=== PATIENT | female | born 1985 | race Caucasian/White ===

== ENCOUNTER 2018-06-11 15:24 | Inpatient (IN) | payer MEDICAID, SELFPAY ==
[2018-06-11 14:55] VITALS: BMI 23.3
[2018-06-11 15:07] VITALS: BP 168/104; PULSE 85; RESP 18; TEMP 37; O2SAT 98
[2018-06-11] MEDS: chlordiazePOXIDE 25 MG Capsule PO ×2 (16:19→22:05)
[2018-06-11] MEDS: Multivitamins,Therapeutic Tablet 1 TABLET PO (16:20)
[2018-06-11] MEDS: Folic Acid 1 MG Tablet PO (16:20)
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
[2018-06-11] MEDS: LORazepam 1 MG Tablet PO (17:36)
[2018-06-11 18:00] VITALS: BP 150/102; PULSE 86; RESP 18; TEMP 36.7; O2SAT 98
[2018-06-11 18:07] LABS: Amphetamine Urine VISTA POSITIVE (<1000 ng/mL); Barbiturate Urine VISTA NEGATIVE (< 200 ng/mL); Benzodiazepine Urine VISTA NEGATIVE (< 200 ng/mL); Cocaine Urine VISTA POSITIVE (< 300 ng/mL); Ecstacy Urine VISTA NEGATIVE (< 500 ng/mL); Methadone Urine VISTA NEGATIVE (< 300 ng/mL); PCP Urine VISTA NEGATIVE (< 25 ng/mL); THC Urine VISTA NEGATIVE (< 50 ng/mL); Vista UDS pH Range 7
[2018-06-11] MEDS: Mag Hydrox/Al Hydrox/Simeth 30 ML UDC PO (19:05)
[2018-06-11 21:50] VITALS: BP 118/82; PULSE 83; RESP 18; TEMP 36.8; O2SAT 100
[2018-06-11] MEDS: MELATONIN 3 MG TABLET PO (22:05)
[2018-06-12] VITALS (10 sets, daily range): BP systolic 103–127; BP diastolic 61–87; PULSE 72–101; RESP 16–18; TEMP 36.3–37.1; O2SAT 99–100
[2018-06-12] MEDS: chlordiazePOXIDE 25 MG Capsule PO ×3 (05:04→17:54)
[2018-06-12] MEDS: LORazepam 1 MG Tablet PO ×2 (05:17→19:35)
[2018-06-12 05:58] LABS: Absolute Lymphocyte Count 2.33 X10^3/ul (0.83-4.51); Absolute Neutrophil Count 3.6 X10^3/uL (2.0-7.7); Basophil# 0.04 X10^3/uL; Basophil% 0.6 % (0-1); Eosinophil# 0.21 X10^3/uL; Eosinophils% 3.1 % (0-5); Hemoglobin 14.8 g/dl (12.0-15.0); Lymphocyte # 2.33 X10^3/ul (4.0); Lymphocyte % 34.7 % (19-41); Mean Corp Hgb Conc 32.9 g/gl (32-36); Mean Corpuscular Volume 97.2 fL (81-99); Mean Platelet Vol. 9.8 fl (6.2-12.0); Monocyte# 0.54 X10^3/uL; Neutrophil # 3.58 X10^3/uL (2.7-7.7); Neutrophil % 53.3 % (47-70); Platelet Count 207 K/mm3 (150-450); RBC Distribution Width CV 14.9 % (11.6-14.6); RBC Distribution Width SD 52.6 fl (35.1-43.9); Red Blood Count 4.63 M/mm3 (4.2-5.4); White Blood Count 6.7 K/mm3 (4.4-11.0)
[2018-06-12 06:06] LABS: Anion Gap 8 (5-15); BUN 8 mg/dL (7-18); BUN/Creat Ratio 11.3 RATIO (10-20); Calcium,Total 8.1 mg/dL (8.5-10.1); Chloride 106 mmol/L (98-107); Creatinine, Serum 0.71 mg/dL (0.55-1.02); EST Glomerular Filtration Rate 101 mL/min (>60); Est Glom Filt Rate - Afr Amer 123 mL/min (>60); Estimated Creatinine Clearance 101.41 ml/min; Glucose 90 mg/dL (74-106); Potassium 3.5 mmol/L (3.5-5.1); Sodium Level 140 mmol/L (136-145)
[2018-06-12 06:09] LABS: Differential Indicated SCAN CRITERIA MET; POSITIVE COUNT NO; POSITIVE DIFFERENTIAL NO; POSITIVE MORPHOLOGY YES
[2018-06-12 06:46] LABS: Differential Comment SCANNED
--- NOTE | 2018-06-12 07:53 | PCM.PN.HOSP ---
Patient Problems: Active and Suspected Problems Alcohol abuse (Acute) Cocaine abuse (Acute) Subjective: Patient was seen and examined. No complaints. Denies any nausea vomiting or tremors. Doing very well. Request HIV and STD check for vaginal discharge. No fever or chills. Vitals/I&O's: Vital Signs Temp Pulse Resp BP Pulse Ox 97.7 F L 81 18 119/87 H 100 06/12/18 05:10 06/12/18 05:10 06/12/18 05:10 06/12/18 05:10 06/12/18 05:14 Oxygen Delivery Method Room Air Weight: 63.503 kg Body Mass Index (BMI) 23.3 Intake and Output for Last 24 Hours 06/10/18 06/11/18 06/12/18 23:59 23:59 23:59 Intake Total 850 / 850 500 / 500 Balance 850 / 850 500 / 500 General: Alert, Oriented x3, Cooperative, No apparent distress HEENT: Atraumatic, PERRLA, EOMI, Normocephalic Oral: Moist Mucosa Neck: Supple, No JVD, Negative Carotid Bruits Lungs: Clear to auscultation, Normal air movement Cardiovascular: Regular rate, Regular Rhythm, Normal S1, Normal S2, No murmurs Abdomen: Bowel Sounds Present, Soft, Non Tender, Non-Distended, No Hepato-splenomegaly Extremities: No edema Skin: No rashes, No breakdown Musculoskeletal: No Tenderness to Palpation of Joints or Extremities Lymphatic: No Cervical, Supraclavicular, or Inguinal Adenopathy Neurological: Cranial nerves II-XII grossly intact, Neuro grossly intact Psych/Mental Status: Normal Affect, Appropriate Laboratory Results 06/11/18 17:30: Urine Opiates Screen NEGATIVE, Urine Methadone Screen NEGATIVE, Ur Barbiturates Screen NEGATIVE, Ur Phencyclidine Scrn NEGATIVE, Ur Amphetamines Screen POSITIVE H, U Methamphetamin-MDMA NEGATIVE, U Benzodiazepines Scrn NEGATIVE, Urine Cocaine Screen POSITIVE H, U Cannabinoids Screen NEGATIVE, Ur Drug Screen Comment 06/12/18 05:25: WBC 6.7, RBC 4.63, Hgb 14.8, Hct 45.0, MCV 97.2, MCH 32.0, MCHC 32.9, RDW 14.9 H, RDW Differential 52.6 H, Plt Count 207, MPV 9.8, Immature Gran % (Auto) 0.300, Neut % (Auto) 53.3, Lymph % (Auto) 34.7, [place] % (Auto) 8.0, Eos % (Auto) 3.1, Baso % (Auto) 0.6, Absolute Neuts (auto) 3.6, Absolute Lymphs (auto) 2.33, Total Counted Not Reportable, Differential Comment SCANNED 06/12/18 05:25: Sodium 140, Potassium 3.5, Chloride 106, Carbon Dioxide 26.0, Anion Gap 8, BUN 8, Creatinine 0.71, Estim Creat Clear Calc 101.41, Est GFR (MDRD) Af Amer 123, Est GFR (MDRD) Non-Af 101, BUN/Creatinine Ratio 11.3, Glucose 90, Calcium 8.1 L Current Medications Al Hydroxide/Mg Hydroxide (Mylanta Ii) 30 ml PO Q6H PRN PRN PRN Reason: heartburn Last Admin: 06/11/18 19:05 Dose: 30 ml Chlordiazepoxide (Librium) 50 mg PO Q6H [facility]; Taper Stop: 06/14/18 17:59 Last Admin: 06/12/18 05:04 Dose: 50 mg Dicyclomine HCl (Bentyl) 20 mg PO Q6H PRN PRN PRN Reason: abdominal discomfort Folic Acid (Folic Acid) [facility] Last Admin: 06/11/18 16:20 Dose: 1 mg Hydroxyzine Pamoate (Vistaril Pamoate Capsule) 50 mg PO Q6H PRN PRN PRN Reason: Mild Anxiety (score 1/3) Influenza Virus Vaccine Quadrival (Fluarix/Fluzone) 0.5 ml IM .ONCE ONE Stop: 06/12/18 10:01 Lorazepam (Ativan) 2 mg IV X1 PRN PRN Reason: Seizure Lorazepam (Ativan) 1 mg PO Q4H PRN PRN PRN Reason: Alcohol Withdrawal Last Admin: 06/12/18 05:17 Dose: 1 mg Magnesium Hydroxide (Milk Of Magnesia) 30 ml PO DAILY PRN PRN PRN Reason: Constipation Melatonin (Melatonin) 3 mg PO QHS [facility] Last Admin: 06/11/18 22:05 Dose: 3 mg Methocarbamol (Methocarbamol) 750 mg PO Q6H PRN PRN PRN Reason: Muscle Aches Multivitamins (Multivitamin) 1 tablet PO DAILYCM [facility] Last Admin: 06/11/18 16:20 Dose: 1 tablet Nicotine (Nicoderm Cq (Pbkc)) 14 mg TRANSDERM. DAILY [facility] Last Admin: 06/11/18 18:16 Dose: 14 mg Sodium Chloride () 5 - 30 ml IV UD PRN PRN Reason: SALINE FLUSH Thiamine HCl (Vitamin B1) 100 [facility] Medical Necessity - Tobacco Use Smoking Status: Current every day smoker Assessment/Plan All Active Problems Alcohol abuse (Acute) Heroin abuse (Resolved) Cocaine abuse (Acute) 33-year-old with past medical history of substance use, heroin and alcohol comes in with alcohol and heroin withdrawal symptoms. 1. Acute alcohol/heroin withdrawal, improving, stable vitals, continue on protocol, inpatient treatment facility planned after discharge 2. Nicotine dependency, advised to quit, 3. Possible STD, patient requests HIV and STD screen 4. Depression, on bupropion 5. DVT prophylaxis with early ambulation Code Visit Inpatient E&M: 24450 Subs Hosp L2
[2018-06-12] MEDS: Folic Acid 1 MG Tablet PO (08:39)
[2018-06-12] MEDS: Multivitamins,Therapeutic Tablet 1 TABLET PO (08:39)
[2018-06-12] MEDS: Thiamine Hydrochloride 100 MG Tablet PO (08:39)
[2018-06-12] MEDS: hydrOXYzine PAM 25 MG Capsule 50 MG PO ×2 (12:28→23:28)
[2018-06-12 12:36] LABS: HIV - WCH Non-Reactive (Nonreactive)
[2018-06-12] MEDS: Ibuprofen 600 MG Tablet PO (21:11)
[2018-06-12] MEDS: buPROPion (SR) 150 MG Tablet.SA PO (22:20)
[2018-06-12] MEDS: Methocarbamol 750 MG Tablet PO (22:20)
[2018-06-12] MEDS: MELATONIN 3 MG TABLET PO (22:20)
[2018-06-12] MEDS: Ondansetron ODT 4 MG Tablet PO (22:21)
[2018-06-13] MEDS: Acetaminophen 500 MG Tablet 1000 MG PO (00:55)
[2018-06-13 02:49] VITALS: BP 120/82; PULSE 65; RESP 18; TEMP 36.5
[2018-06-13] MEDS: LORazepam 1 MG Tablet PO ×3 (02:56→22:44)
[2018-06-13] MEDS: chlordiazePOXIDE 25 MG Capsule PO ×3 (02:57→17:38)
[2018-06-13 02:58] VITALS: O2SAT 100
[2018-06-13] MEDS: Ibuprofen 600 MG Tablet PO ×2 (03:15→16:46)
--- NOTE | 2018-06-13 08:21 | PN_ITS ---
Patient Problems: Active and Suspected Problems Alcohol abuse (Acute) Cocaine abuse (Acute) Subjective: Patient was seen and examined. Sleeping. no acute events overnight Objective: General: Alert, Oriented x3, Cooperative, No apparent distress HEENT: Atraumatic, PERRLA, EOMI, Normocephalic Oral: Moist Mucosa Neck: Supple, No JVD, Negative Carotid Bruits Lungs: Clear to auscultation, Normal air movement Cardiovascular: Regular rate, Regular Rhythm, Normal S1, Normal S2, No murmurs Abdomen: Bowel Sounds Present, Soft, Non Tender, Non-Distended, No Hepato- splenomegaly Extremities: No edema Skin: No rashes, No breakdown Musculoskeletal: No Tenderness to Palpation of Joints or Extremities Lymphatic: No Cervical, Supraclavicular, or Inguinal Adenopathy Neurological: Cranial nerves II-XII grossly intact, Neuro grossly intact Psych/Mental Status: Normal Affect, Appropriate Vitals/I&O's: Vital Signs Temp Pulse Resp BP Pulse Ox 97.7 F L 65 18 120/82 H 100 06/13/18 02:49 06/13/18 02:49 06/13/18 02:49 06/13/18 02:49 06/13/18 02:58 Oxygen Delivery Method Room Air Weight: 63.503 kg Body Mass Index (BMI) 23.3 Intake and Output for Last 24 Hours 06/11/18 06/12/18 06/13/18 23:59 23:59 23:59 Intake Total 850 / 850 900 / 900 200 / 200 Balance 850 / 850 900 / 900 200 / 200 Laboratory Results 06/12/18 11:16: HIV 1&2 Antibody Non-Reactive Current Medications Al Hydroxide/Mg Hydroxide (Mylanta Ii) 30 ml PO Q6H PRN PRN PRN Reason: heartburn Last Admin: 06/11/18 19:05 Dose: 30 ml Bupropion HCl (Wellbutrin Sr (150mg Tablets)) 150 mg PO BID [facility] Last Admin: 06/12/18 22:20 Dose: 150 mg Chlordiazepoxide (Librium) 50 mg PO Q8H [facility]; Taper Stop: 06/14/18 17:59 Last Admin: 06/13/18 02:57 Dose: 50 mg Dicyclomine HCl (Bentyl) 20 mg PO Q6H PRN PRN PRN Reason: abdominal discomfort Folic Acid (Folic Acid) [facility] Last Admin: 06/12/18 08:39 Dose: 1 mg Hydroxyzine Pamoate (Vistaril Pamoate Capsule) 50 mg PO Q6H PRN PRN PRN Reason: Mild Anxiety (score 1/3) Last Admin: 06/12/18 23:28 Dose: 50 mg Ibuprofen (Motrin) 600 mg PO Q6H PRN PRN PRN Reason: PAIN Last Admin: 06/13/18 03:15 Dose: 600 mg Lorazepam (Ativan) 2 mg IV X1 PRN PRN Reason: Seizure Lorazepam (Ativan) 1 mg PO Q4H PRN PRN PRN Reason: Alcohol Withdrawal Last Admin: 06/13/18 02:56 Dose: 1 mg Magnesium Hydroxide (Milk Of Magnesia) 30 ml PO DAILY PRN PRN PRN Reason: Constipation Melatonin (Melatonin) 3 mg PO QHS [facility] Last Admin: 06/12/18 22:20 Dose: 3 mg Methocarbamol (Methocarbamol) 750 mg PO Q6H PRN PRN PRN Reason: Muscle Aches Last Admin: 06/12/18 22:20 Dose: 750 mg Multivitamins (Multivitamin) 1 tablet PO [facility] Last Admin: 06/12/18 08:39 Dose: 1 tablet Nicotine (Nicoderm Cq (Pbkc)) 14 mg TRANSDERM. DAILY [facility] Last Admin: 06/13/18 03:16 Dose: 14 mg Ondansetron HCl (Zofran Odt) 4 mg PO Q6H PRN PRN PRN Reason: NAUSEA Last Admin: 06/12/18 22:21 Dose: 4 mg Sodium Chloride () 5 - 30 ml IV UD PRN PRN Reason: SALINE FLUSH Thiamine HCl (Vitamin B1) 100 [facility] PO [facility] Last Admin: 06/12/18 08:39 Dose: 100 mg Medical Necessity - Tobacco Use Smoking Status: Current every day smoker Assessment/Plan All Active Problems Alcohol abuse (Acute) Heroin abuse (Resolved) Cocaine abuse (Acute) 33-year-old with past medical history of substance use, heroin and alcohol comes in with alcohol and heroin withdrawal symptoms. 1. Acute alcohol/heroin withdrawal, improving, stable vitals, will continue per protocol, inpatient treatment facility planned after discharge 2. Nicotine dependency, advised to quit, 3. Depression, on bupropion 4. DVT prophylaxis with early ambulation Code Visit Inpatient E&M: 18361 Subs Hosp L2
[2018-06-13] MEDS: Thiamine Hydrochloride 100 MG Tablet PO (11:07)
[2018-06-13] MEDS: Multivitamins,Therapeutic Tablet 1 TABLET PO (11:07)
[2018-06-13] MEDS: buPROPion (SR) 150 MG Tablet.SA PO ×2 (11:07→22:38)
[2018-06-13] MEDS: Folic Acid 1 MG Tablet PO (11:07)
[2018-06-13 11:17] VITALS: BP 105/66; PULSE 76; RESP 14; TEMP 36.6
[2018-06-13] MEDS: Dicyclomine 10 MG Capsule 20 MG PO (13:01)
[2018-06-13] MEDS: Mag Hydrox/Al Hydrox/Simeth 30 ML UDC PO (13:01)
[2018-06-13] MEDS: Methocarbamol 750 MG Tablet PO (13:01)
[2018-06-13 14:19] VITALS: BP 102/61; PULSE 95; RESP 16; TEMP 36.6
[2018-06-13 22:29] VITALS: BP 110/63; PULSE 66; RESP 16; TEMP 37.2
[2018-06-13 22:33] VITALS: O2SAT 100
[2018-06-13] MEDS: MELATONIN 3 MG TABLET PO (22:38)
[2018-06-13 22:50] LABS: Bacteria 0 SEEN /hpf (None Seen); Mucous, Urine 0 SEEN /hpf (<or=2+); Red Blood Cells-Urine 0 SEEN /hpf (0-5); White Blood Cells 0 SEEN /hpf (0-5)
[2018-06-13 22:58] LABS: Color, Urine Yellow (Yellow); Glucose, Dipstick Normal (Normal); Ketone-Dipstick Negative (Negative); Leukocyte Esterase-Dipstick Negative /ul (Negative); Nitrite-Dipstick Negative (Negative); Occult Blood-Urine Negative /ul (Negative); Protein-Dipstick Negative (Negative); Urine Bilirubin Dipstick Negative (Negative); Urine Clarity Sl. Cloudy (Clear); Urine Urobilinogen Normal (Normal)
[2018-06-13 23:08] LABS: Amorphous Sediment 1+ PHOS; Squamous Epithelial Cells - UA 0-5 SEEN /hpf (5-10)
[2018-06-14 05:38] VITALS: BP 103/57; PULSE 77; RESP 16; TEMP 36.5
[2018-06-14 05:44] VITALS: O2SAT 99
[2018-06-14] MEDS: chlordiazePOXIDE 25 MG Capsule PO (05:49)
[2018-06-14] MEDS: LORazepam 1 MG Tablet PO ×2 (05:49→10:07)
--- NOTE | 2018-06-14 08:33 | PCM.DC ---
- Discharge Diagnoses Current Active Problems: Current Active and Chronic Problems Alcohol abuse (Acute) Cocaine abuse (Acute) Reason(s) for Visit for Discharge Instructions: Alcohol and heroin withdrawal You will use the following diet at home:: Regular Your food should be the consistency of: Regular Your liquids should be the consistency of: Regular/Thin Discharge Activity: Return to Normal Activity Additional Instructions: You are advised to quit using heroin and drinking alcohol. Continue to follow-up with your outpatient residential program Allergies/Adverse Reactions: Allergies No Known Allergies Allergy (Verified 06/11/18 15:02) Medications to take at Discharge buPROPion SR [Wellbutrin SR (150mg tablets)] 150 mg PO BID 06/11/18 Multivitamins,Therapeutic [Multivitamin] 1 tablet PO DAILYCM #30 tablet 06/14/18 Nicotine [Nicoderm] 14 mg TRANSDERM. DAILY #30 patch 06/14/18 Thiamine Hydrochloride [Vitamin B1] 100 mg PO DAILYCM #30 tablet 06/14/18 The following prescriptions were given: Multivitamins,Therapeutic [Multivitamin] 1 tablet PO DAILYCM #30 tablet Nicotine [Nicoderm] 14 mg TRANSDERM. DAILY #30 patch Thiamine Hydrochloride [Vitamin B1] 100 mg PO DAILYCM #30 tablet Primary Care Physician: Yesenia Ojeda,Out of [Primary Care Provider] - Please follow up with your Primary Care Physician in: within 2 weeks Test Results: Test results from this visit will be discussed in further detail at your follow-up appointment, if applicable. Proposed Discharge Date: 06/14/18
--- NOTE | 2018-06-14 08:37 | DCINST_ITS ---
- Discharge Diagnoses Current Active Problems: Current Active and Chronic Problems Alcohol abuse (Acute) Cocaine abuse (Acute) Reason(s) for Visit for Discharge Instructions: Alcohol and heroin withdrawal You will use the following diet at home:: Regular Your food should be the consistency of: Regular Your liquids should be the consistency of: Regular/Thin Discharge Activity: Return to Normal Activity Additional Instructions: You are advised to quit using heroin and drinking alcohol. Continue to follow-up with your outpatient residential program Allergies/Adverse Reactions: Allergies No Known Allergies Allergy (Verified 06/11/18 15:02) Medications to take at Discharge buPROPion SR [Wellbutrin SR (150mg tablets)] 150 mg PO BID 06/11/18 Multivitamins,Therapeutic [Multivitamin] 1 tablet PO DAILYCM #30 tablet 06/14/18 Nicotine [Nicoderm] 14 mg TRANSDERM. DAILY #30 patch 06/14/18 Thiamine Hydrochloride [Vitamin B1] 100 mg PO DAILYCM #30 tablet 06/14/18 The following prescriptions were given: Multivitamins,Therapeutic [Multivitamin] 1 tablet PO DAILYCM #30 tablet Nicotine [Nicoderm] 14 mg TRANSDERM. DAILY #30 patch Thiamine Hydrochloride [Vitamin B1] 100 mg PO DAILYCM #30 tablet Primary Care Physician: Yesenia Ojeda,Out of [Primary Care Provider] - Please follow up with your Primary Care Physician in: within 2 weeks Test Results: Test results from this visit will be discussed in further detail at your follow- up appointment, if applicable. Proposed Discharge Date: 06/14/18
--- NOTE | 2018-06-14 08:37 | PCM.DC.SUM ---
Discharge Date and Diagnosis - Problem List Patient Problems: Active and Suspected Problems Alcohol abuse (Acute) Cocaine abuse (Acute) Date of Admission: 06/11/18 Date of Discharge: 06/14/18 - Primary Discharge Diagnosis Active and Suspected Problems Alcohol abuse (Acute) Cocaine abuse (Acute) Acute alcohol withdrawal Acute heroin withdrawal - Secondary Discharge Diagnosis anxiety/depression Hospital Course and Treatment None Operations: None Procedures: None Summary of Care Provided: The patient is a 33 year old F with PMHx of heroin and alcohol dependency who comes in for medical stabilization under the [facility] protocol. Patient was managed on the protocol She had some complaints during stay of dysuria and urgency, workup including UA was not suggestive of a UTI. Patient will follow-up with an inpatient residential treatment facility. Patient Problems: Active and Suspected Problems Alcohol abuse (Acute) Cocaine abuse (Acute) Subjective: Patient was seen and examined on the day of discharge. - Physical Exam General: Alert, Oriented x3, Cooperative, No apparent distress HEENT: Atraumatic, PERRLA, EOMI, Normocephalic Oral: Moist Mucosa Neck: Supple, No JVD, Negative Carotid Bruits Lungs: Clear to auscultation, Normal air movement Cardiovascular: Regular rate, Regular Rhythm, Normal S1, Normal S2, No murmurs Abdomen: Bowel Sounds Present, Soft, Non Tender, Non-Distended, No Hepato-splenomegaly Extremities: No edema Skin: No rashes, No breakdown Musculoskeletal: No Tenderness to Palpation of Joints or Extremities Lymphatic: No Cervical, Supraclavicular, or Inguinal Adenopathy Neurological: Cranial nerves II-XII grossly intact, Neuro grossly intact Psych/Mental Status: Normal Affect, Appropriate Vital Signs Temp Pulse Resp BP Pulse Ox 97.7 F L 77 16 103/57 L 99 06/14/18 05:38 06/14/18 05:38 06/14/18 05:38 06/14/18 05:38 06/14/18 05:44 Oxygen Delivery Method Room Air Weight: 63.503 kg Body Mass Index (BMI) 23.3 Intake and Output for Last 24 Hours 06/12/18 06/13/18 06/14/18 23:59 23:59 23:59 Intake Total 900 / 900 200 / 200 200 / 200 Balance 900 / 900 200 / 200 200 / 200 Laboratory Tests Past 24 Hrs 06/13/18 22:40 Urine Color Yellow Urine Clarity Sl. Cloudy Urine pH 8.0 Ur Specific [place] 1.010 Urine Protein Negative Urine Glucose (UA) Normal Urine Ketones Negative Urine Occult Blood Negative Urine Nitrite Negative Urine Bilirubin Negative Urine Urobilinogen Normal Ur Leukocyte Esterase Negative Urine RBC 0 SEEN Urine WBC 0 SEEN Ur Squamous Epith Cells 0-5 SEEN Amorphous Sediment 1+ PHOS Urine Bacteria 0 SEEN Urine Mucus 0 SEEN Discharge Diet: No Restrictions Discharge Activity: Return to Normal Activity Home Medications: Medications to take at Discharge buPROPion SR [Wellbutrin SR (150mg tablets)] 150 mg PO BID 06/11/18 Multivitamins,Therapeutic [Multivitamin] 1 tablet PO DAILYCM #30 tablet 06/14/18 Nicotine [Nicoderm] 14 mg TRANSDERM. DAILY #30 patch 06/14/18 Thiamine Hydrochloride [Vitamin B1] 100 mg PO DAILYCM #30 tablet 06/14/18 Following Prescrptions Were Given to Patient: Multivitamins,Therapeutic [Multivitamin] 1 tablet PO DAILYCM #30 tablet Nicotine [Nicoderm] 14 mg TRANSDERM. DAILY #30 patch Thiamine Hydrochloride [Vitamin B1] 100 mg PO DAILYCM #30 tablet Primary Care Physician: Yesenia Ojeda,Out of [Primary Care Provider] - Please follow up with your Primary Care Physician in: within 2 weeks Disposition: Home Minutes spent on discharge:: 40 Patient Condition:: Stable Medical Necessity - Tobacco Use Smoking Status: Current every day smoker Tobacco Use: Cigarettes Meaningful Use Info Meaningful Use Diagnoses (Choose all that apply): None applicable Code Visit Inpatient E&M: 88183 Disch Hosp
[2018-06-14] MEDS: Multivitamins,Therapeutic Tablet 1 TABLET PO (09:22)
[2018-06-14] MEDS: Thiamine Hydrochloride 100 MG Tablet PO (09:22)
[2018-06-14] MEDS: Folic Acid 1 MG Tablet PO (09:22)
[2018-06-14] MEDS: buPROPion (SR) 150 MG Tablet.SA PO (09:24)
[2018-06-14 09:25] VITALS: BP 111/63; PULSE 81; RESP 18; TEMP 36.7; O2SAT 99
[2018-06-14 10:00] VITALS: BP 111/63; PULSE 81; RESP 18; TEMP 36.7
[2018-06-14 11:40] VITALS: BP 111/63; PULSE 81; RESP 18; TEMP 36.7; O2SAT 99
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
== END 2018-06-14 11:40 | disposition home or self-care (01) | DRG 773 ==
LOC: MS2 06-12 11:14 → MS3 06-13 13:58
PROVIDERS: Admitting Provider Family Medicine; Referring Provider Family Medicine; Visit Provider Internal Medicine
DX: F10.239 Alcohol dependence with withdrawal, unspecified (principal); F11.23 Opioid dependence with withdrawal; F41.9 Anxiety disorder, unspecified; F32.9 Major depressive disorder, single episode, unspecified; F17.210 Nicotine dependence, cigarettes, uncomplicated; Z23 Encounter for immunization
CPT/HCPCS: 36415; 80048; 80307; 81001; 85025; 86703; 87086; 87088; 97802; 90686; A4216

== ENCOUNTER 2018-11-09 12:17 | Observation (INO) | payer MEDICAID, SELFPAY ==
[2018-11-09 12:19] VITALS: BP 154/83; PULSE 130; RESP 18; TEMP 36.8; O2SAT 99; BMI 25.7
--- NOTE | 2018-11-09 12:47 | ED.DCSUM_ITS ---
- ER Visit Summary Date of Service: 11/09/18 Chief Complaint: Requesting detox History of Present Illness: The patient is a 33 F with history of drug and alcohol abuse. Patient presents today requesting detox. She was admitted in May for similar and states she did well for a while. She states her last drink was at 7 PM last evening and she normally drinks 2-424 ounce drinks a day. She last used fentanyl at midnight last night. She does shoot up in a vein. This morning she has body aches, nausea, feels anxious. She has not been to sleep yet overnight. She states she has a tingling sensation on her skin. Physical Examination: Blood pressure is 154/83, temperature 98.2, heart rate 130, respiratory rate 18, pulse ox 99% on room air. Patient sitting upright in bed in no acute distress. She does appear slightly anxious. Head and neck examination unremarkable. Heart is tachycardic and regular. Lungs sounds clear. Abdomen is soft and nontender. Hypoactive bowel sounds are present throughout. Psychiatric evaluation reveals slight anxiety. She denies suicidal thoughts. Test Results: EKG is sinus tach at 130 with no acute ischemia. CBC was a white count of 17.6 with 87% neutrophils. Chemistry studies normal. LFTs significant for an ALT of 131 and AST of 82. test is negative. EtOH is 4. Patient has not yet given us a urine sample. Emergency Department Course and Treatment: Patient was given IV fluids along with Ativan, Librium, and Toradol. Patient was discussed with Dr. Monroy and patient will be admitted for [facility]. Treatment Plan: [] Disposition: Admit Impression: Withdrawal from alcohol and narcotics This note was generated with invino dictation software. It may contain incorrect words, spelling, and punctuation that were not noted in review of the chart prior to signing ED Disposition - Plan for ED Patient: Referrals: [facility] Doctor,Out of [Primary Care Provider] -
[2018-11-09] MEDS: 0.9% Normal Saline 1,000 ML 1000 ML IV (13:00)
[2018-11-09] MEDS: LORazepam 2 MG/ML Syringe 1 MG IV (13:00)
[2018-11-09] MEDS: Ketorolac 30 MG/ML Syringe IV (13:01)
[2018-11-09 13:04] LABS: Absolute Lymphocyte Count 0.69 X10^3/ul (0.83-4.51); Absolute Neutrophil Count 15.5 X10^3/uL (2.0-7.7); Basophil# 0.01 X10^3/uL; Basophil% 0.1 % (0-1); Hematocrit 42.6 % (37-47); Hemoglobin 14.2 g/dl (12.0-15.0); Lymphocyte # 0.69 X10^3/ul (4.0); Lymphocyte % 3.9 % (19-41); Mean Corp Hgb Conc 33.3 g/gl (32-36); Mean Corpuscular Hgb 31.8 pg (27.0-32.0); Mean Corpuscular Volume 95.5 fL (81-99); Mean Platelet Vol. 9.3 fl (6.2-12.0); Monocyte# 1.39 X10^3/uL; Monocyte% 7.9 % (0-10); Neutrophil % 87.9 % (47-70); POSITIVE COUNT NO; POSITIVE DIFFERENTIAL NO; POSITIVE MORPHOLOGY NO; Platelet Count 189 K/mm3 (150-450); RBC Distribution Width CV 13.4 % (11.6-14.6); RBC Distribution Width SD 46.4 fl (35.1-43.9); Red Blood Count 4.46 M/mm3 (4.2-5.4); White Blood Count 17.6 K/mm3 (4.4-11.0)
[2018-11-09] MEDS: chlordiazePOXIDE 25 MG Capsule PO (13:07)
[2018-11-09 13:19] LABS: AST(SGOT) 82 U/L (15-37); Alanine Aminotransfer ALT/SGPT 131 U/L (13-56); Alkaline Phosphatase 86 U/L (45-117); Anion Gap 7 (5-15); BUN 11 mg/dL (7-18); BUN/Creat Ratio 11.1 RATIO (10-20); Bilirubin, Direct 0.26 mg/dL (0.00-0.30); Calcium,Total 8.8 mg/dL (8.5-10.1); Chloride 103 mmol/L (98-107); Creatinine, Serum 0.99 mg/dL (0.55-1.02); EST Glomerular Filtration Rate 68 mL/min (>60); Est Glom Filt Rate - Afr Amer 82 mL/min (>60); Estimated Creatinine Clearance 69.79 ml/min; Glucose 151 mg/dL (74-106); Lipase 82 U/L (73-393); Potassium 3.8 mmol/L (3.5-5.1); Sodium Level 139 mmol/L (136-145)
[2018-11-09 13:24] LABS: Pregnancy, Serum, hCG Quali. NEGATIVE Negative (0-9 Nonpreg)
[2018-11-09 13:25] VITALS: PULSE 131; RESP 16; O2SAT 100
--- NOTE | 2018-11-09 14:29 | NURSING ---
216 white detox from alcohol, fentanyl
--- NOTE | 2018-11-09 14:38 | HP.PCM_ITS ---
Problem List (1) Opiate withdrawal Status: Acute (2) Alcohol withdrawal Status: Acute Qualifiers: Complication of substance-induced condition: with unspecified complication Qualified Code(s): F10.239 - Alcohol dependence with withdrawal, unspecified (3) Fentanyl use disorder, severe Status: Chronic (4) IV drug user Status: Chronic (5) Hepatitis C Status: Chronic Qualifiers: Viral hepatitis chronicity: unspecified Hepatic coma status: without he patic coma Qualified Code(s): B19.20 - Unspecified viral hepatitis C without hepatic coma (6) Anxiety and depression Status: Chronic (7) Tobacco use Status: Chronic History of Present Illness Date of Admission: 11/09/18 Chief Complaint: Acute Opiate and EtOH Withdrawal The patient is a 33 y/o F w/ PMHx: Anxiety and Depression, Tobacco use, History of Hepatitis C without any treatment prior, prior Hx IVDA, now relapsed to IVDA w/ Fentanyl (1/2 gm daily, last use 11/09/18 midnight) in addition to ongoing EtOH abuse (4, 24 ounce hard liquor malt drinks at least daily, last 11/08/18 7 pm) who presents to the [facility] ED on 11/09/18 with history of onset abdominal pain/cramping, generalized body aches and pains, rhinorrhea, piloerection, fatigue, restless leg, sweating, yawning in addition to tremors as well as auditory and visual hallucinations worsening over the last 12 hours. Patient has been through acute rehabilitation prior and had been successful for several months however she notes that she continued to be around individual still using and relapsed as a result. She also notes that she stopped checking in with 180. As noted patient prior had been off IV drug usage but has returned and currently using fentanyl with prior history of cocaine and heroin in the past. Patient also admits to unsafe sexual practices and amenable to HIV, hepatitis panel as well as gonorrhea and chlamydia, RPR testing. Past Medical History Past Medical History (Chronic Problems): Chronic Problems Fentanyl use disorder, severe (Chronic) IV drug user (Chronic) Hepatitis C (Chronic) Anxiety and depression (Chronic) Tobacco use (Chronic) Allergies No Known Allergies Allergy (Verified 11/09/18 12:22) Home Medications: Ambulatory Orders Medication Instructions Recorded Multivitamins,Therapeutic 1 tablet PO DAILYCM #30 tablet 06/14/18 [Multivitamin] buPROPion SR [Wellbutrin SR (150mg 150 mg PO BID #60 tablet.sa 06/14/18 tablets)] Surgical History: - - Esure, tonsillectomy. 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 Tobacco Use: Cigarettes Alcohol: Heavy - At least 4, 24 ounce liquor malt mixed drinks daily. Drugs: - - Patient currently notes IV fentanyl usage, 1/2 g daily, heroin and cocaine noted in the past. - *Family History Maternal History Items: Heart Disease, Hypertension, Renal Disease Paternal History Items: Heart Disease, Hypertension, Renal Disease Review of Systems Constitutional: Reports: Anorexia, Chills, Malaise, Weakness, Fatigue. Denies: Fever, Weight Change HEENT: Reports: - - Rhinorrhea, frequent yawning.. Denies: Head Aches, Sinus Congestion, Sinus Drainage Cardiovascular: Denies: Chest Pain, Palpitations Respiratory: Denies: Cough, Shortness of breath at rest, Sputum production Gastrointestinal: Reports: Abdominal Pain, Nausea. Denies: Vomiting Genitourinary: Denies: Dysuria Gynecological: Reports: Vaginal discharge Musculoskeletal: Reports: Joint Pain, Muscle pain. Denies: Joint Tenderness Skin: Reports: Skin Changes. Denies: Rash, Wounds Neurological: Reports: Tremor, - - Hallucinations, auditory and visual.. Denies: Focal weakness, Numbness, Tingling Psychiatric: Reports: Anxiety, Depression. Denies: Homicidal Ideations, Suicidal Ideations Hematologic/ Lymphatic: Denies: Easy Bruising, Easy Bleeding VTE Information - Inpt Only VTE Present on Admission: No VTE Mechan Device Prophylaxis: None VTE Pharm Prophylaxis ordered?: No Reason prophylaxis not ordered:: Treatment Not Indicated - Low risk. Patient Problems: Active and Suspected Problems Opiate withdrawal (Acute) Alcohol withdrawal (Acute) Subjective: Seated upright in the bed, anxious appearing, moving around frequently, tremors present. Objective: Physical Examination: General: awake, alert, oriented x 3 and cooperative, seated upright in the ED bed, mildly agitated, moving about, tremors present. Skin: normal color, turgor, no icterus, cyanosis, most recent injection right and cubital fossa and right upper extremity with no obvious infection, nodules present. HEENT: AT/NC, EOMI, PERRLA, dry MM, no carotid bruits or JVD noted. Lungs: CTA bilaterally, moderate effort, mild decrease BL bases, no rales, ronchi or wheezing. Heart: Tachycardic with regular rhythm; no gallop, rub audible. Abdomen: soft, generalized discomfort with palpation, ND, hyperactive BS, no market HSM. Extremities: no cyanosis, clubbing, or edema. Neurological: patient awake, alert, oriented x 3; cognitive function intact; pupils equally reactive to light and accomodation; cranial nerves II-XII grossly normal, moving all 4 extremities, no focal deficits, strength moderately globally decreased secondary to acute withdrawal, tremors present, admits to auditory and visual hallucinations, not currently. Psychiatric: affect appears mildly agitated, chest, no acute evidence of depressive feelings. - Physical Exam Vital Signs Temp Pulse Resp BP Pulse Ox 98.2 F 131 H 16 154/83 H 100 11/09/18 12:19 11/09/18 13:25 11/09/18 13:25 11/09/18 12:19 11/09/18 13:25 Oxygen Delivery Method Room Air Weight: 150 lb Body Mass Index (BMI) 25.7 Laboratory Tests Past 24 Hrs 11/09/18 11/09/18 11/09/18 12:55 12:55 12:55 WBC 17.6 H RBC 4.46 Hgb 14.2 Hct 42.6 MCV 95.5 MCH 31.8 MCHC 33.3 RDW 13.4 RDW Differential 46.4 H Plt Count 189 MPV 9.3 Immature Gran % (Auto) 0.200 Neut % (Auto) 87.9 H Lymph % (Auto) 3.9 L Clare % (Auto) 7.9 Eos % (Auto) 0.0 Baso % (Auto) 0.1 Absolute Neuts (auto) 15.5 H Absolute Lymphs (auto) 0.69 L Total Counted Not Reportable Sodium 139 Potassium 3.8 Chloride 103 Carbon Dioxide 29.0 Anion Gap 7 BUN 11 Creatinine 0.99 Estim Creat Clear Calc 69.79 Est GFR (MDRD) Af Amer 82 Est GFR (MDRD) Non-Af 68 BUN/Creatinine Ratio 11.1 Glucose 151 H Calcium 8.8 Total Bilirubin 0.70 Direct Bilirubin 0.26 AST 82 H ALT 131 H Alkaline Phosphatase 86 Total Protein 8.0 Albumin 4.0 Globulin 4.0 Lipase 82 Serum , Qual Ethyl Alcohol 4.0 11/09/18 12:55 WBC RBC Hgb Hct MCV MCH MCHC RDW RDW Differential Plt Count MPV Immature Gran % (Auto) Neut % (Auto) Lymph % (Auto) Clare % (Auto) Eos % (Auto) Baso % (Auto) Absolute Neuts (auto) Absolute Lymphs (auto) Total Counted Sodium Potassium Chloride Carbon Dioxide Anion Gap BUN Creatinine Estim Creat Clear Calc Est GFR (MDRD) Af Amer Est GFR (MDRD) Non-Af BUN/Creatinine Ratio Glucose Calcium Total Bilirubin Direct Bilirubin AST ALT Alkaline Phosphatase Total Protein Albumin Globulin Lipase Serum , Qual NEGATIVE Ethyl Alcohol Assessment/Plan All Active Problems Alcohol abuse (Acute) Heroin abuse (Resolved) Cocaine abuse (Acute) Opiate withdrawal (Acute) Alcohol withdrawal (Acute) The patient is a 33 y/o F w/ PMHx: Anxiety and Depression, Tobacco use, History of Hepatitis C without any treatment prior, prior Hx IVDA, now relapsed to IVDA w/ Fentanyl in addition to ongoing EtOH abuse who presents to the [facility] ED on 11/09/18 with history of onset acute EtOH and Opiate withdrawal. (1) Acute Opiate Withdrawal and Acute EtOH Withdrawal: Will admit to [place], ED routine labs obtained including CBC, CMP, pending urine for drug screen, will initiate and continue on [facility] service protocol with tapering course of Librium w/ CIWA w/ ativan, as needed Seroquel, Librium, Sinemet, Catapres, Bentyl, Vistaril, IV fluids, IV antiemetics, Tylenol as needed for pain. Once patient clinically improved and completion of taper nearing will plan [facility] assistance for transition to next level of rehabilitation care. Mag and phos pending. MVI, Thiamine, Folic acid continuation. (2) Polysubstance Abuse, IVDA Hx, History of Hepatitis C, Chronic: Patient currently not candidate for hep C treatment currently as needs to be clean, sober x 6 months, documented attendance NA or AA meetings, counseling and ongoing negative drug screens. Once appropriate GI, ID to initiate. HIV, hepatitis panel to assess for co-infection pending as well as Chl/Agapito, RPR assessment as notes recent unsafe sexual practices. Encouraged PCP establishment and follow-up. (3) Tobacco Abuse: Encouraged cessation, inpatient consultation per RT, NR if desired. (4) Anxiety and Depression: Maintain on home wellbutrin regimen; however, would benefit from regimen alteration outpatient. Encouraged outpatient therapy continuation, establishment. (5) Vaginal Discharge w/ Unsafe Sexual Practices: From description suspected BV, pending HIV, pending hepatitis, pending Gh/Chl (genital comprehensive culture), pending RPR. Will await these results and add regimen if needed. (6) DVT prophylaxis: Low risk, ambulation. Code Visit Inpatient E&M: 25036 Init Hosp L3
[2018-11-09] MEDS: 0.9% Normal Saline 1,000 ML 150 ML IV (14:44)
[2018-11-09 14:46] VITALS: BP 142/82; PULSE 134; RESP 18; O2SAT 98
[2018-11-09 15:16] LABS: Amphetamine Urine VISTA NEGATIVE (<1000 ng/mL); Barbiturate Urine VISTA NEGATIVE (< 200 ng/mL); Benzodiazepine Urine VISTA NEGATIVE (< 200 ng/mL); Cocaine Urine VISTA POSITIVE (< 300 ng/mL); Ecstacy Urine VISTA NEGATIVE (< 500 ng/mL); Methadone Urine VISTA NEGATIVE (< 300 ng/mL); PCP Urine VISTA NEGATIVE (< 25 ng/mL); THC Urine VISTA NEGATIVE (< 50 ng/mL); Vista UDS pH Range 6
[2018-11-09 15:34] VITALS: BMI 24.5
[2018-11-09 15:36] VITALS: BMI 24.5
[2018-11-09 16:15] VITALS: BP 149/97; PULSE 123; RESP 18; TEMP 36.8
--- NOTE | 2018-11-09 16:34 | NURSING ---
During admission patient was on her phone on facebook and did not look up from phone. This RN had to repeat questions multiple times with the patient still preoccupied with phone not hearing a second or third time. Following assessment-- when her boyfriend called she held up a finger and asked this RN to give her time. Will give medications to patient when she is done with phone conversation.
[2018-11-09] MEDS: Lactated Ringers 1,000 ML 125 ML IV (16:45)
[2018-11-09] MEDS: cloNIDine HCl 0.1 MG Tablet PO ×2 (16:46→22:03)
[2018-11-09] MEDS: chlordiazePOXIDE 25 MG Capsule 50 MG PO ×2 (16:46→22:02)
[2018-11-09] MEDS: Methocarbamol 750 MG Tablet PO (16:46)
[2018-11-09] MEDS: Ondansetron ODT 4 MG Tablet PO (16:46)
[2018-11-09] MEDS: Dicyclomine 10 MG Capsule 20 MG PO (16:46)
[2018-11-09 17:04] LABS: Magnesium 1.7 mg/dL (1.6-2.6); Phosphorus 2.4 mg/dL (2.5-4.9)
[2018-11-09 17:57] LABS: HIV - WCH Non-Reactive (Nonreactive)
[2018-11-09 20:23] LABS: Chlamydia Trachomatis by PCR Negative (Negative); Neisserai gonorrhoeae by PCR Negative (Negative); Probe Check PASS; Sample Adequacy Control PASS; Specimen Processing Control PASS
[2018-11-09 21:57] VITALS: BP 151/91; PULSE 109; RESP 18; TEMP 37.1
[2018-11-09] MEDS: buPROPion (SR) 150 MG Tablet.SA PO (22:03)
[2018-11-09] MEDS: Ibuprofen 600 MG Tablet PO (22:08)
[2018-11-09] MEDS: hydrOXYzine PAM 25 MG Capsule 50 MG PO (22:08)
[2018-11-09] MEDS: Pramipexole Di-HCl 0.25 MG Tablet PO (22:08)
--- NOTE | 2018-11-09 23:35 | NURSING ---
Pt left AMA at this time. Had given pt prn medications at 2208hrs for anxiety, headache and muscle aches. Pt had showered post administration and stated she was going to go to bed. Stated she was really tired and just wanted to sleep. VARNISH SUPERVISOR Afua advised this nurse at approximately 2300hrs that patient wanted to go outside for a cigarette. This nurse went back to patient's room and advised pt that smoking was not permitted. Offered patient the options of obtaining a nicotine patch or gum both of which patient declined as she said it would not be effective. Patient advised she would just go to sleep. She stated she felt 'really good' at that time and that the medications given to her had taken care of her anxiety. Approximately 2315hrs Advised by VARNISH SUPERVISOR that patient had come out into the hallway and was yelling at her that she wanted her IV removed so she could leave and have a cigarette. Again this nurse went back to her room and again offered a nicotine patch or gum. Discussed her need to smoke administration and pt stated she felt 'really good' and that the medications were effective
--- NOTE | 2018-11-09 23:59 | NURSING ---
Pt left AMA at 2335hrs. Had given patient prn medications at 2208hrs for anxiety, headache and muscle aches. Pt stated medications were effective and had taken a shower and stated she was going to sleep. Advised by QUYNH Caal at approximately 2300hrs that patient was wanting to leave for a cigarette. This nurse went back to discuss with patient that smoking was not permitted and offered her the option of obtaining a nicotine patch or gum. Patient declined offers and stated she would just go to sleep. She also stated the she was feeling 'really good' at that time with the medications recently given to her. Alerted by QUYNH Caal again at approximately 2315hrs to say that patient had met her in the hallway and was yelling at her that she wanted her IV removed and wanted to leave to have a cigarette. Again this nurse went back to the patient's room to find her with her belongings packed. She requested her IV be removed so she could leave. Same attended whilst talking to the patient about her need to smoke, again offering a nicotine patch or gum and trying to encourage her to stay and not give up her detox program for her desire for a cigarette. This nurse was unsuccessful with patient opting to leave AMA. Dr Huggins and buildings and grounds supervisor informed by Charge Nurse Jeannette Belle.
--- NOTE | 2018-11-10 06:52 | PCM.DC.SUM ---
Discharge Date and Diagnosis Date of Admission: 11/09/18 Date of Discharge: 11/09/18 - Primary Discharge Diagnosis (1) Acute Opiate Withdrawal and Acute EtOH Withdrawal (2) Polysubstance Abuse, IVDA Hx, History of Hepatitis C, Chronic (3) Tobacco Abuse (4) Anxiety and Depression (5) Vaginal Discharge w/ Unsafe Sexual Practices - Secondary Discharge Diagnosis Chronic Problems Fentanyl use disorder, severe (Chronic) IV drug user (Chronic) Hepatitis C (Chronic) Anxiety and depression (Chronic) Tobacco use (Chronic) Hospital Course and Treatment Operations: None Procedures: EKG Summary of Care Provided: The patient is a 33 y/o F w/ PMHx: Anxiety and Depression, Tobacco use, History of Hepatitis C without any treatment prior, prior Hx IVDA, now relapsed to IVDA w/ Fentanyl (1/2 gm daily, last use 11/09/18 midnight) in addition to ongoing EtOH abuse (4, 24 ounce hard liquor malt drinks at least daily, last 11/08/18 7 pm) who presented to the [facility] ED on 11/09/18 with history of onset abdominal pain/cramping, generalized body aches and pains, rhinorrhea, piloerection, fatigue, restless leg, sweating, yawning in addition to tremors as well as auditory and visual hallucinations worsening over the last 12 hours. Patient noted she had been through acute rehabilitation prior and had been successful for several months however she notes that she continued to be around individual still using and relapsed as a result. She also noted that she stopped checking in with 180. As noted patient prior had been off IV drug usage but has returned and currently using fentanyl with prior history of cocaine and heroin in the past. Patient also admitted to unsafe sexual practices. Patient was admitted to [facility] and initiated on withdrawal [facility] protocol; however, patient left AMA 11/09/18 secondary to reported argument with her significant. - Physical Exam Vital Signs Temp Pulse Resp BP Pulse Ox 98.7 F 109 H 18 151/91 H 98 11/09/18 21:57 11/09/18 21:57 11/09/18 21:57 11/09/18 21:57 11/09/18 14:46 Oxygen Delivery Method Room Air Weight: 147 lb 4.301 oz Body Mass Index (BMI) 24.5 Intake and Output for Last 24 Hours 11/08/18 11/09/1811/10/19 23:59 23:59 23:59 Intake Total 400 / 400 Balance 400 / 400 Laboratory Tests Past 24 Hrs 11/09/18 11/09/18 11/09/18 12:55 12:55 12:55 WBC 17.6 H RBC 4.46 Hgb 14.2 Hct 42.6 MCV 95.5 MCH 31.8 MCHC 33.3 RDW 13.4 RDW Differential 46.4 H Plt Count 189 MPV 9.3 Immature Gran % (Auto) 0.200 Neut % (Auto) 87.9 H Lymph % (Auto) 3.9 L [place] % (Auto) 7.9 Eos % (Auto) 0.0 Baso % (Auto) 0.1 Absolute Neuts (auto) 15.5 H Absolute Lymphs (auto) 0.69 L Total Counted Not Reportable Sodium 139 Potassium 3.8 Chloride 103 Carbon Dioxide 29.0 Anion Gap 7 BUN 11 Creatinine 0.99 Estim Creat Clear Calc 69.79 Est GFR (MDRD) Af Amer 82 Est GFR (MDRD) Non-Af 68 BUN/Creatinine Ratio 11.1 Glucose 151 H Calcium 8.8 Phosphorus Magnesium Total Bilirubin 0.70 Direct Bilirubin 0.26 AST 82 H ALT 131 H Alkaline Phosphatase 86 Total Protein 8.0 Albumin 4.0 Globulin 4.0 Lipase 82 Serum , Qual Urine Opiates Screen Urine Methadone Screen Ur Barbiturates Screen Ur Phencyclidine Scrn Ur Amphetamines Screen U Methamphetamin-MDMA U Benzodiazepines Scrn Urine Cocaine Screen U Cannabinoids Screen Ur Drug Screen Comment Ethyl Alcohol 4.0 RPR Chlam trachomat DNA PCR Hepatitis A IgM Ab Hepatitis A Ab Total Hep Bs Antigen Hep B Core Total Ab Hep B Core IgM Ab HIV 1&2 Antibody N.gonorrhoeae DNA (PCR) 11/09/18 11/09/18 11/09/18 12:55 14:50 16:10 WBC RBC Hgb Hct MCV MCH MCHC RDW RDW Differential Plt Count MPV Immature Gran % (Auto) Neut % (Auto) Lymph % (Auto) [place]ened[place] % (Auto) Eos % (Auto) Baso % (Auto) Absolute Neuts (auto) Absolute Lymphs (auto) Total Counted Sodium Potassium Chloride Carbon Dioxide Anion Gap BUN Creatinine Estim Creat Clear Calc Est GFR (MDRD) Af Amer Est GFR (MDRD) Non-Af BUN/Creatinine Ratio Glucose Calcium Phosphorus 2.4 L Magnesium 1.7 Total Bilirubin Direct Bilirubin AST ALT Alkaline Phosphatase Total Protein Albumin Globulin Lipase Serum , Qual NEGATIVE Urine Opiates Screen POSITIVE H Urine Methadone Screen NEGATIVE Ur Barbiturates Screen NEGATIVE Ur Phencyclidine Scrn NEGATIVE Ur Amphetamines Screen NEGATIVE U Methamphetamin-MDMA NEGATIVE U Benzodiazepines Scrn NEGATIVE Urine Cocaine Screen POSITIVE H U Cannabinoids Screen NEGATIVE Ur Drug Screen Comment Ethyl Alcohol RPR Chlam trachomat DNA PCR Hepatitis A IgM Ab Hepatitis A Ab Total Hep Bs Antigen Hep B Core Total Ab Hep B Core IgM Ab HIV 1&2 Antibody N.gonorrhoeae DNA (PCR) 11/09/18 11/09/18 11/09/18 16:10 16:10 16:10 WBC RBC Hgb Hct MCV MCH MCHC RDW RDW Differential Plt Count MPV Immature Gran % (Auto) Neut % (Auto) Lymph % (Auto) [place] % (Auto) Eos % (Auto) Baso % (Auto) Absolute Neuts (auto) Absolute Lymphs (auto) Total Counted Sodium Potassium Chloride Carbon Dioxide Anion Gap BUN Creatinine Estim Creat Clear Calc Est GFR (MDRD) Af Amer Est GFR (MDRD) Non-Af BUN/Creatinine Ratio Glucose Calcium Phosphorus Magnesium Total Bilirubin Direct Bilirubin AST ALT Alkaline Phosphatase Total Protein Albumin Globulin Lipase Serum , Qual Urine Opiates Screen Urine Methadone Screen Ur Barbiturates Screen Ur Phencyclidine Scrn Ur Amphetamines Screen U Methamphetamin-MDMA U Benzodiazepines Scrn Urine Cocaine Screen U Cannabinoids Screen Ur Drug Screen Comment Ethyl Alcohol RPR Pending Chlam trachomat DNA PCR Hepatitis A IgM Ab Pending Hepatitis A Ab Total Pending Hep Bs Antigen Pending Hep B Core Total Ab Pending Hep B Core IgM Ab Pending HIV 1&2 Antibody Non-Reactive N.gonorrhoeae DNA (PCR) 11/09/18 11/09/18 18:00 18:00 WBC RBC Hgb Hct MCV MCH MCHC RDW RDW Differential Plt Count MPV Immature Gran % (Auto) Neut % (Auto) Lymph % (Auto) [place] % (Auto) Eos % (Auto) Baso % (Auto) Absolute Neuts (auto) Absolute Lymphs (auto) Total Counted Sodium Potassium Chloride Carbon Dioxide Anion Gap BUN Creatinine Estim Creat Clear Calc Est GFR (MDRD) Af Amer Est GFR (MDRD) Non-Af BUN/Creatinine Ratio Glucose Calcium Phosphorus Magnesium Total Bilirubin Direct Bilirubin AST ALT Alkaline Phosphatase Total Protein Albumin Globulin Lipase Serum , Qual Urine Opiates Screen Urine Methadone Screen Ur Barbiturates Screen Ur Phencyclidine Scrn Ur Amphetamines Screen U Methamphetamin-MDMA U Benzodiazepines Scrn Urine Cocaine Screen U Cannabinoids Screen Ur Drug Screen Comment Ethyl Alcohol RPR Chlam trachomat DNA PCR Negative Hepatitis A IgM Ab Hepatitis A Ab Total Hep Bs Antigen Hep B Core Total Ab Hep B Core IgM Ab HIV 1&2 Antibody N.gonorrhoeae DNA (PCR) Negative Home Medications: Medications to take at Discharge Multivitamins,Therapeutic [Multivitamin] 1 tablet PO DAILYCM #30 tablet 06/14/18 buPROPion SR [Wellbutrin SR (150mg tablets)] 150 mg PO BID #60 tablet.sa 06/14/18 Primary Care Physician: Yesenia Ojeda,Out of [Primary Care Provider] - Disposition: Home Minutes spent on discharge:: 35 Patient Condition:: Stable Medical Necessity - Tobacco Use Smoking Status: Current every day smoker Tobacco Use: Cigarettes Meaningful Use Info Meaningful Use Diagnoses (Choose all that apply): None applicable Code Visit OBSV E&M: 72470 Observ/hosp same date L3
[2018-11-13 05:07] LABS: HEPATITIS B SURFACE AG Negative (Negative); Hepatitis A AB, Total Negative (Negative); Hepatitis A IgM Antibody Negative (Negative); Hepatitis B Core AB IgM Negative (Negative); Hepatitis B Core Ab Total Negative (Negative)
[2018-11-13 11:07] LABS: Hep B Surface Antibodies Non Reactive (.)
[2018-11-13 14:35] LABS: Hepatitis C Ab >11.0 s/co ratio (0.0-0.9)
[2018-11-15 03:37] LABS: Rapid Plasmin Reagin (RPR) NONREACTIVE (NONREACTIVE)
== END 2018-11-09 23:35 | disposition left against medical advice (07) ==
LOC: ED 14:22 → MS2 11-11 08:50
PROVIDERS: Admitting Provider Family Medicine; Emergency Provider Emergency Medicine; Referring Provider Family Medicine; Visit Provider Family Medicine
DX: F11.23 Opioid dependence with withdrawal (principal); F10.239 Alcohol dependence with withdrawal, unspecified; N89.8 Other specified noninflammatory disorders of vagina; F41.9 Anxiety disorder, unspecified; F32.9 Major depressive disorder, single episode, unspecified; F17.210 Nicotine dependence, cigarettes, uncomplicated; Z79.899 Other long term (current) drug therapy; Z86.19 Personal history of other infectious and parasitic diseases
CPT/HCPCS: 36415; 80048; 80076; 80307; 80320; 83690; 83735; 84100; 84703; 85025; 86592; 86703; 86704; 86705; 86706; 86708; 86709; 86803; 87070; 87205; 87340; 87491; 87591; 93005; 96361; 96374; 96375; 99218; 99284; J7030; J7120; G0378; G0480

== ENCOUNTER 2020-06-01 09:31 | Inpatient (IN) | payer MEDICAID, SELFPAY ==
[2020-06-01] VITALS (8 sets, daily range): BP systolic 148–203; BP diastolic 89–125; PULSE 72–124; RESP 14–26; TEMP 36.4–36.9; O2SAT 95–99; BMI 25.7; BMI 30.7; BMI 30.6
--- NOTE | 2020-06-01 10:07 | EKG12_ITS ---
Test Reason : Blood Pressure : / mmHG Vent. Rate : 101 BPM Atrial Rate : 101 BPM P-R Int : 124 ms QRS Dur : 082 ms QT Int : 364 ms P-R-T Axes : 059 039 029 degrees QTc Int : 471 ms Sinus tachycardia Confirmed by WISAM KIM, COLTON ([id number]), editorial project manager VIVIEN GAMBLE ([id number]) on 06/07/2020 11:46:50 AM Referred By: CLAIRE Confirmed By:COLTON JOEL MD
--- NOTE | 2020-06-01 10:09 | US_ITS ---
STUDY: ABDOMINAL ULTRASOUND - RIGHT UPPER QUADRANT REASON FOR VISIT: Female, 35 years old pain TECHNIQUE: Ultrasound evaluation of the right upper quadrant was performed with real-time and static [place]-scale imaging. TECHNICAL QUALITY: Adequate. COMPARISON: None. FINDINGS: Liver: The liver measures 20.5 cm. There is increased echogenicity consistent with fatty infiltration. The bile ducts are within normal limits. There is hepatic color flow. The direction of portal flow is hepatopetal. There is no demonstrated mass lesion. Gallbladder: Normal distended gallbladder. The gallbladder wall measures 2 mm. There is a negative sonographic Ramos''s sign. There is no pericholecystic fluid. There are gallbladder polyps. Common Bile Duct (C.B.D.): The common bile duct measures 3 mm. Pancreas: Normal size of the head, body and tail of the pancreas. There is normal echogenicity of the pancreas. There is no demonstrated pancreatic mass or cyst. Right Kidney: Normal size of the right kidney. The right kidney measures 11.9 cm. Normal renal cortex. The right cortex measures 1.7 cm. There is no demonstrated renal mass or cyst. There is no right hydronephrosis. US/Gallbladder IMPRESSION: 1. Cholesterolosis. 2. Fatty infiltration liver. Electronically Signed: Vipin Cortes MD at 11:51 EDT Tel , Service support ,
--- NOTE | 2020-06-01 10:11 | ED.VIS.GEN ---
History of Present Illness Chief Complaint: Substance Abuse Informant: Patient Narrative: 5-year-old female presenting for detox from EtOH. Patient states she is done this twice in the past. She has detoxed at [facility] before. Currently she states for the last 3 or 4 months she has been drinking about 8 or 9 beers a day in addition to 1/5 of vodka. She states she has not had any alcohol in about 36 hours and is in withdrawal.She denies any other drugs currently. - Past Medical History (1) Alcohol abuse Status: Acute (2) Alcohol withdrawal Status: Acute (3) Hepatitis C Status: Chronic Past Medical History - Allergies and Home Meds Allergies/Adverse Reactions: Allergies No Known Allergies Allergy (Verified 06/01/20 09:32) Prior records reviewed: Yes Past Medical History: - - Hepatitis C, EtOH abuse Surgical History: - - Esure, tonsillectomy. Lives: Alone Smoking Status: Current every day smoker Alcohol: Heavy - Family History Maternal Family History: Reports: Heart Disease, Hypertension, Renal Disease Paternal Family History: Reports: Heart Disease, Hypertension, Renal Disease Review of Systems General: Denies: Chills, Fever, Sweats Eyes: Denies: Visual changes - bilaterally, Diplopia ENT: Denies: Rhinorrhea, Sore throat Cardiovascular: Reports: Palpitations. Denies: Chest pain Respiratory: Denies: Dyspnea, Cough Gastrointestinal: Reports: Abdominal pain, Nausea Genitourinary: Denies: Dysuria, Hematuria Musculoskeletal: Denies: Myalgias, Arthralgias Skin: Denies: Rash, Abscess Neurological: Reports: Headache Psych: Reports: Anxiety. Denies: Suicidal thoughts, Suicidal ideations Hematologic: Denies: Easy bruising, Easy bleeding Physical Exam Vital Signs/Narrative: Vital Signs Temp Pulse Resp BP Pulse Ox 06/01/20 09:32 97.6 F L 124 H 18 203/125 H 99 Inital Vital Signs reviewed: Yes General: Obese, No Acute Distress, - - Resting tremor noted Eyes: Perrl, EOMI. Negative for: Scleral icterus ENT: Moist mucous membranes, No rhinorrhea Cardiovascular: Regular rhythm, Tachycardia Respiratory: No distress, CTA bilaterally Abdomen: Soft, Nondistended, - - Mild right upper quadrant pain. Back: Nontender Skin: Normal color, No rash. Negative for: Jaundice Neurological: Alert, Oriented x3, Cranial nerves II-XII grossly intact Psychological: Tearful, - - Anxious Diagnostic/Tx/Re-eval - Rhythm Strip Rhythm Strip: Sinus Tach Rate: 101 - EKG Initial EKG Interpretation: No Acute Injury Pattern, Sinus Tachycardia Follow-up EKG Interpretation: No Acute Injury Pattern, Sinus Tachycardia - Medical Decision Making Patient was seen and evaluated on arrival for EtOH withdrawal. She was hypertensive, tachycardic, and did have tremors. She was given Ativan which did make her more comfortable. EKG is sinus rhythm without signs of ischemia. Lab work-up is unremarkable with exception of elevated LFTs. She was complaining of some mild right-sided abdominal pain so I did order an ultrasound of the right upper quadrant which is pending on admission. Admitting physician did want clonidine given due to her elevated blood pressure. He did order this. He will follow-up on ultrasound as an inpatient. Impression: 1. EtOH withdrawal 2. Elevated LFTs 3. Right upper quadrant pain ED Disposition - Plan for ED Patient: Disposition: Acute [facility]
[2020-06-01 10:59] LABS: Amphetamine Urine VISTA NEGATIVE (<1000 ng/mL); Barbiturate Urine VISTA NEGATIVE (< 200 ng/mL); Benzodiazepine Urine VISTA NEGATIVE (< 200 ng/mL); Cocaine Urine VISTA NEGATIVE (< 300 ng/mL); Ecstacy Urine VISTA NEGATIVE (< 500 ng/mL); Methadone Urine VISTA NEGATIVE (< 300 ng/mL); PCP Urine VISTA NEGATIVE (< 25 ng/mL); THC Urine VISTA NEGATIVE (< 50 ng/mL); Vista UDS pH Range 7
[2020-06-01] MEDS: LORazepam 2 MG/ML Syringe 1 MG IV (11:00)
--- NOTE | 2020-06-01 11:04 | ED.RN ---
pt c/o cp. called for ekg, aware. pt is very anxious prior to cp starting.
[2020-06-01 11:18] LABS: Absolute Lymphocyte Count 1.18 X10^3/uL (0.83-4.51); Absolute Neutrophil Count 3.6 X10^3/uL (2.0-7.7); Basophil# 0.03 X10^3/uL; Basophil% 0.5 % (0-1); Eosinophil# 0.05 X10^3/uL; Eosinophils% 0.9 % (0-5); Hematocrit 38.8 % (37-47); Hemoglobin 12.8 g/dL (12.0-15.0); Lymphocyte # 1.18 X10^3/ul (4.0); Mean Corpuscular Hgb 33.5 pg (27.0-32.0); Mean Corpuscular Volume 101.6 fL (81-99); Mean Platelet Vol. 9.7 fl (6.2-12.0); Monocyte# 0.74 X10^3/uL; Monocyte% 13.1 % (0-10); NRBC Flagged by Analyzer 0 % (0-5); Neutrophil # 3.61 X10^3/uL (2.7-7.7); Neutrophil % 64.1 % (47-70); Platelet Count 118 K/mm3 (150-450); RBC Distribution Width CV 17.3 % (11.6-14.6); RBC Distribution Width SD 64.1 fl (35.1-43.9); Red Blood Count 3.82 M/mm3 (4.2-5.4); White Blood Count 5.6 K/mm3 (4.4-11.0)
[2020-06-01 11:26] LABS: International Normalized Ratio 0.9; Prothrombin Time (Protime)PT. 11.9 SECONDS (11.7-14.9)
[2020-06-01 11:27] LABS: Internal QC Validated? YES +Cl - CLEAR BKGD; Pregnancy, Serum, hCG Quali. NEGATIVE Negative
[2020-06-01 11:36] LABS: ALB/GLOB Ratio 0.6 RATIO (0.9-2.4); AST(SGOT) 281 U/L (15-37); Alanine Aminotransfer ALT/SGPT 181 U/L (13-56); Alkaline Phosphatase 153 U/L (45-117); Anion Gap 7 (5-15); BUN 8 mg/dL (7-18); BUN/Creat Ratio 10.9 RATIO (10-20); Calcium,Total 8.3 mg/dL (8.5-10.1); Chloride 103 mmol/L (98-107); Creatinine, Serum 0.73 mg/dL (0.55-1.02); EST Glomerular Filtration Rate 96 mL/min (>60); Est Glom Filt Rate - Afr Amer 116 mL/min (>60); Estimated Creatinine Clearance 96.79 ml/min; Globulin 4.8 g/dL (2.2-4.2); Glucose 106 mg/dL (74-106); Lipase 234 U/L (73-393); Magnesium 1.6 mg/dL (1.6-2.6); Potassium 3.3 mmol/L (3.5-5.1); Protein, Total 7.8 g/dL (6.4-8.2); Sodium Level 138 mmol/L (136-145)
--- NOTE | 2020-06-01 11:38 | EKG12_ITS ---
Test Reason : Blood Pressure : / mmHG Vent. Rate : 103 BPM Atrial Rate : 103 BPM P-R Int : 126 ms QRS Dur : 084 ms QT Int : 390 ms P-R-T Axes : 055 042 032 degrees QTc Int : 510 ms Sinus tachycardia Confirmed by WISAM KIM, COLTON ([id number]), photo editor VIVIEN GAMBLE ([id number]) on 06/07/2020 11:47:05 AM Referred By: CLAIRE Confirmed By:COLTON JOEL MD
[2020-06-01 11:43] LABS: Alcohol, Blood (Medical)-Serum < 3.0 mg/dL
--- NOTE | 2020-06-01 11:54 | ED.RN ---
pt resting with eyes closed.
--- NOTE | 2020-06-01 12:02 | HP.PCM_ITS ---
Problem List (1) Alcohol abuse Status: Acute (2) Heroin abuse Status: Inactive (3) Cocaine abuse Status: Inactive (4) Opiate withdrawal Status: Inactive (5) Alcohol withdrawal Status: Acute Qualifiers: Complication of substance-induced condition: with unspecified complication Qualified Code(s): F10.239 - Alcohol dependence with withdrawal, unspecified (6) Fentanyl use disorder, severe Status: Inactive (7) IV drug user Status: Chronic (8) Hepatitis C Status: Chronic Qualifiers: Viral hepatitis chronicity: unspecified Hepatic coma status: without hepatic coma Qualified Code(s): B19.20 - Unspecified viral hepatitis C without hepatic coma (9) Anxiety and depression Status: Chronic (10) Tobacco use Status: Chronic History of Present Illness Date of Admission: 06/01/20 Chief Complaint: Acute alcohol withdrawal symptoms The patient is a 35 year old F with history of chronic alcohol use came to ER with alcohol withdrawal symptoms including tremors, nausea, vomiting, hallucinations. She drinks 8-9 beer bottles every day and 1/5 of vodka. As she started getting nausea and vomiting she stopped drinking alcohol about 36 hours ago and did not had food or drink noted to control the symptoms. Patient was last admitted in October 2018 for acute opioid withdrawal, polysubstance abuse, IVDA and crack cocaine use but currently she states she is clean. U tox negative. Serum alcohol level less than 3. Blood pressure was high 203/125, heart rate 125 in triage, ED. Patient states usually her blood pressure in systolic 150-160 and heart rate in 80s. Abnormal labs ALT 181, AST 21, alkaline phosphatase 153. Potassium 3.3. She easily falls asleep currently drowsy and lethargic. [] Past Medical History Past Medical History (Chronic Problems): Chronic Problems IV drug user (Chronic) Hepatitis C (Chronic) Anxiety and depression (Chronic) Tobacco use (Chronic) Allergies No Known Allergies Allergy (Verified 06/01/20 09:32) Home Medications: Ambulatory Orders Medication Instructions Recorded Duloxetine Hcl [Cymbalta] 60 mg PO DAILY 06/01/20 Gabapentin [Neurontin] 800 mg PO TIDCM 06/01/20 Surgical History: - - Esure, tonsillectomy. Psychiatric History: Anxiety, Depression MENTAL HEALTH COORDINATOR History: No pertinent MENTAL HEALTH COORDINATOR history Lives: Alone Smoking Status: Current every day smoker Alcohol: Heavy - *Family History Maternal History Items: Heart Disease, Hypertension, Renal Disease Paternal History Items: Heart Disease, Hypertension, Renal Disease Review of Systems Constitutional: Reports: Anorexia, Chills, Weakness, Fatigue. Denies: Fever HEENT: Denies: Head Aches, Sinus Congestion, Sinus Drainage Cardiovascular: Denies: Chest Pain, Palpitations Respiratory: Denies: Cough, Shortness of breath at rest, Sputum production Gastrointestinal: Denies: Abdominal Pain, Nausea, Vomiting Genitourinary: Denies: Dysuria Musculoskeletal: Denies: Joint Pain, Joint Tenderness Skin: Denies: Rash, Wounds Neurological: Denies: Numbness, Tingling, Focal weakness Psychiatric: Reports: Anxiety, Depression. Denies: Homicidal Ideations, Suicidal Ideations Hematologic/ Lymphatic: Denies: Easy Bruising, Easy Bleeding Unable to obtain accurate/complete ROS d/t: Patient is drowsy and lethargic, and alcohol withdrawal syndrome VTE Information - Inpt Only VTE Present on Admission: No VTE Mechan Device Prophylaxis: None VTE Pharm Prophylaxis ordered?: No Reason prophylaxis not ordered:: Procedure Not Indicated Patient Problems: Active and Suspected Problems Alcohol abuse (Acute) Alcohol withdrawal (Acute) Objective: Physical exam General: Drowsy and lethargic. Awakes on verbal command. Oriented x3. HEENT: Atraumatic, PERRLA, EOMI, Normocephalic Oral: No Gingival or Mucosal Lesions/ Ulcerations Neck: Supple, No JVD, Negative Carotid Bruits Lungs: Air entry diminished in bilateral lung bases. No crepitation/rhonchi Cardiovascular: Regular rate, Regular Rhythm, Normal S1, Normal S2, No murmurs Abdomen: Bowel Sounds Present, Soft, Non Tender, Non-Distended : No renal angle tenderness. No suprapubic tenderness. Extremities: No edema, Capillary Refill Less than 3 Seconds Skin: No rashes, No breakdown Musculoskeletal: No Tenderness to Palpation of Joints or Extremities Neurological: Cranial nerves II-XII grossly intact, Deep Tendon Reflexes 2+/4 and Symmetrical, Neuro grossly intact Psych/Mental Status: Anxious. Hallucinations - Physical Exam Vitals/I&O's: Vital Signs Temp Pulse Resp BP Pulse Ox 98.5 F 110 H 26 H 203/125 H 96 06/01/20 10:24 06/01/20 10:24 06/01/20 10:24 06/01/20 09:32 06/01/20 10:24 Oxygen Delivery Method Room Air Weight: 185 lb Body Mass Index (BMI) 30.7 Laboratory Results 06/01/20 10:26: Urine Opiates Screen NEGATIVE, Urine Methadone Screen NEGATIVE, Ur Barbiturates Screen NEGATIVE, Ur Phencyclidine Scrn NEGATIVE, Ur Amphetamines Screen NEGATIVE, U Methamphetamin-MDMA NEGATIVE, U Benzodiazepines Scrn NEG ATIVE, Urine Cocaine Screen NEGATIVE, U Cannabinoids Screen NEGATIVE, Ur Drug Screen Comment 06/01/20 11:05: WBC 5.6, RBC 3.82 L, Hgb 12.8, Hct 38.8, MCV 101.6 H, MCH 33.5 H , MCHC 33.0, RDW Std Deviation 64.1 H, RDW Coeff of Eugene 17.3 H, Plt Count 118 L, MPV 9.7, Immature Gran % (Auto) 0.400, Neut % (Auto) 64.1, Lymph % (Auto) 21.0, Iron % (Auto) 13.1 H, Eos % (Auto) 0.9, Baso % (Auto) 0.5, Absolute Neuts (auto) 3.6, Absolute Lymphs (auto) 1.18, Nucleated RBC % 0 06/01/20 11:05: PT 11.9, INR 0.9 06/01/20 11:05: Sodium 138, Potassium 3.3 L, Chloride 103, Carbon Dioxide 28.0, Anion Gap 7, BUN 8, Creatinine 0.73, Estim Creat Clear Calc 96.79, Est GFR (MDRD) Af Amer 116, Est GFR (MDRD) Non-Af 96, BUN/Creatinine Ratio 10.9, Glucose 106, Calcium 8.3 L, Magnesium 1.6, Total Bilirubin 0.90, AST 281 H, ALT 181 H, Alkaline Phosphatase 153 H, Total Protein 7.8, Albumin 3.0 L, Globulin 4.8 H, Albumin/Globulin Ratio 0.6 L, Lipase 234 06/01/20 11:05: Ethyl Alcohol < 3.0 06/01/20 11:05: Serum , Qual NEGATIVE Current Medications Clonidine (Clonidine Hcl 0.1 Mg Tablet) 0.2 mg PO X1 ONE Stop: 06/01/20 12:03 Assessment/Plan All Active Problems Alcohol abuse (Acute) Alcohol withdrawal (Acute) This 35-year-old female is being admitted with acute alcohol withdrawal syndrome. 1. Acute alcohol withdrawal syndrome: [facility] Started on phenobarbital based other supportive medications to control withdrawal symptoms. hse manager consult. Consult 180. 2. Uncontrolled hypertension, hypertensive urgency secondary to acute alcohol withdrawal syndrome: Clonidine 0.2 mg p.o. twice daily with holding parameters ordered. Patient is also dehydrated therefore 2 liter Ringer lactate ordered. 3. Hypokalemia: Potassium is getting replaced. Serum magnesium and phosphorus ordered. 4. Anxiety and depression: On gabapentin and duloxetine. 5. History of chronic opioid use and polysubstance use: Patient claimed that she is clean since previous admission in October 2018 for the same. VTE prophylaxis, low risk. Early ambulation encouraged. Inpatient E&M: [id number] Init Hosp L3
[2020-06-01] MEDS: cloNIDine HCl 0.1 MG Tablet 0.2 MG PO (12:15)
[2020-06-01 13:01] LABS: Phosphorus 3.1 mg/dL (2.5-4.9)
[2020-06-01] MEDS: Phenobarbital 32.4 MG Tablet 64.8 MG PO ×2 (17:27→21:45)
[2020-06-01] MEDS: Lactated Ringers 1,000 ML 125 ML IV (17:27)
[2020-06-01] MEDS: Gabapentin 300 MG Capsule PO (19:44)
[2020-06-01] MEDS: Ondansetron 8 MG Tablet PO (19:44)
[2020-06-01] MEDS: Ibuprofen 400 MG Tablet PO (19:44)
[2020-06-01] MEDS: Loperamide 2 MG Capsule PO (19:44)
[2020-06-01] MEDS: 0.9% Saline Lock 10 ML Syringe IV (20:10)
--- NOTE | 2020-06-01 21:40 | NURSING ---
Additional belongings for this pt were brought up from ER. Home meds locked in med room.
[2020-06-01] MEDS: cloNIDine HCl 0.2 MG Tablet PO (21:45)
[2020-06-01] MEDS: traZODone 100 MG Tablet PO (22:20)
[2020-06-02] VITALS (12 sets, daily range): BP systolic 105–138; BP diastolic 60–96; PULSE 60–88; RESP 16–18; TEMP 36.6–36.8; O2SAT 95–99
[2020-06-02] MEDS: Phenobarbital 32.4 MG Tablet 64.8 MG PO ×6 (02:12→22:19)
[2020-06-02] MEDS: Lactated Ringers 1,000 ML 125 ML IV (06:04)
[2020-06-02 07:15] LABS: Anion Gap 5 (5-15); BUN 10 mg/dL (7-18); BUN/Creat Ratio 14.6 RATIO (10-20); Calcium,Total 7.8 mg/dL (8.5-10.1); Chloride 105 mmol/L (98-107); Creatinine, Serum 0.69 mg/dL (0.55-1.02); EST Glomerular Filtration Rate 104 mL/min (>60); Est Glom Filt Rate - Afr Amer 125 mL/min (>60); Estimated Creatinine Clearance 98.27 ml/min; Glucose 106 mg/dL (74-106); Magnesium 1.8 mg/dL (1.6-2.6); Potassium 3.5 mmol/L (3.5-5.1); Sodium Level 136 mmol/L (136-145)
[2020-06-02 09:07] LABS: AST(SGOT) 137 U/L (15-37); Alanine Aminotransfer ALT/SGPT 119 U/L (13-56); Albumin, Serum 2.4 g/dL (3.2-5.0); Alkaline Phosphatase 116 U/L (45-117); Globulin 3.9 g/dL (2.2-4.2); Protein, Total 6.3 g/dL (6.4-8.2)
--- NOTE | 2020-06-02 09:14 | ADDICTION ---
This poem writer attempted to meet with patient in her room. Pt stated that she is not feeling up to assessment and d/c planning today but is willing to participate tomorrow. This poem writer will attempt to meet with patient tomorrow.
[2020-06-02] MEDS: Folic Acid 1 MG Tablet PO (10:50)
[2020-06-02] MEDS: DULoxetine Hcl 60 MG Capsule PO (10:50)
[2020-06-02] MEDS: cloNIDine HCl 0.2 MG Tablet PO (10:50)
[2020-06-02] MEDS: Thiamine Hydrochloride 100 MG Tablet PO (10:50)
--- NOTE | 2020-06-02 11:26 | PN_ITS ---
Patient Problems: Active and Suspected Problems Alcohol abuse (Acute) Alcohol withdrawal (Acute) Reason for Visit: Follow-up for alcohol withdrawal Objective: Heart rate and blood pressure are controlled. Patient drowsy and lethargic. Feels nauseous when she sits up, she feels more symptomatic nauseous. Physical exam General: Lethargic, sleepy. Responds to simple questions. HEENT: Atraumatic, PERRLA, EOMI, Normocephalic Oral: No Gingival or Mucosal Lesions/ Ulcerations Neck: Supple, No JVD, Negative Carotid Bruits Lungs: Air entry diminished in bilateral lung bases. No crepitation/rhonchi Cardiovascular: Regular rate, Regular Rhythm, Normal S1, Normal S2, No murmurs Abdomen: Bowel Sounds Present, Soft, Non Tender, Non-Distended : No renal angle tenderness. No suprapubic tenderness. Extremities: No edema, Capillary Refill Less than 3 Seconds Skin: No rashes, No breakdown Musculoskeletal: No Tenderness to Palpation of Joints or Extremities Neurological: Cranial nerves II-XII grossly intact, Deep Tendon Reflexes 2+/4 and Symmetrical, Neuro grossly intact Psych/Mental Status: Normal Affect, Appropriate. Vitals/I&O's: Vital Signs Temp Pulse Resp BP Pulse Ox 98 F 60 16 105/63 95 06/02/20 06:00 06/02/20 08:36 06/02/20 06:00 06/02/20 06:00 06/02/20 06:00 Oxygen Delivery Method Room Air Weight: 183 lb 13.848 oz Body Mass Index (BMI) 30.6 Intake and Output for Last 24 Hours 05/31/20 06/01/20 06/02/20 23:59 23:59 23:59 Intake Total 297.75 / 297.75 806.25 / 806.25 Balance 297.75 / 297.75 806.25 / 806.25 Laboratory Results 06/01/20 11:05: PT 11.9, INR 0.9 06/01/20 11:05: Sodium 138, Potassium 3.3 L, Chloride 103, Carbon Dioxide 28.0, Anion Gap 7, BUN 8, Creatinine 0.73, Estim Creat Clear Calc 96.79, Est GFR (MDRD) Af Amer 116, Est GFR (MDRD) Non-Af 96, BUN/Creatinine Ratio 10.9, Glucose 106, Calcium 8.3 L, Magnesium 1.6, Total Bilirubin 0.90, AST 281 H, ALT 181 H, Alkaline Phosphatase 153 H, Total Protein 7.8, Albumin 3.0 L, Globulin 4.8 H, Albumin/Globulin Ratio 0.6 L, Lipase 234 06/01/20 11:05: Ethyl Alcohol < 3.0 06/01/20 11:05: Serum , Qual NEGATIVE 06/01/20 11:05: Phosphorus 3.1 06/02/20 06:30: Sodium 136, Potassium 3.5, Chloride 105, Carbon Dioxide 26.0, Anion Gap 5, BUN 10, Creatinine 0.69, Estim Creat Clear Calc 98.27, Est GFR (MDRD) Af Amer 125, Est GFR (MDRD) Non-Af 104, BUN/Creatinine Ratio 14.6, Glucose 106, Calcium 7.8 L, Magnesium 1.8 06/02/20 06:30: Total Bilirubin 1.20 H, Direct Bilirubin 0.40 H, AST 137 H, ALT 119 H, Alkaline Phosphatase 116, Total Protein 6.3 L, Albumin 2.4 L, Globulin 3.9 Current Medications Al Hydroxide/Mg Hydroxide (Mag Hydrox/Al Hydrox/Simeth 30 Ml Udc) 30 ml PO Q6H PRN PRN PRN Reason: dyspesia Bisacodyl (Bisacodyl 10 Mg Suppository) 10 mg RECTAL DAILY PRN PRN Reason: Constipation Clonidine (Clonidine Hcl 0.2 Mg Tablet) 0.2 mg PO BID [facility] Last Admin: 06/02/20 10:50 Dose: 0.2 mg Documented by: Dicyclomine HCl (Dicyclomine 10 Mg Capsule) 20 mg PO Q6H PRN PRN PRN Reason: abdominal discomfort Duloxetine HCl (Duloxetine Hcl 60 Mg Capsule) 60 mg PO DAILY [facility] Last Admin: 06/02/20 10:50 Dose: 60 mg Documented by: Folic Acid (Folic Acid 1 Mg Tablet) 1 mg PO DAILY@0800 [facility] Last Admin: 06/02/20 10:50 Dose: 1 mg Documented by: Gabapentin (Gabapentin 300 Mg Capsule) 300 mg PO Q8H PRN PRN PRN Reason: moderate to severe anxiety Last Admin: 06/01/20 19:44 Dose: 300 mg Documented by: Hydroxyzine Pamoate (Hydroxyzine Cristine 25 Mg Capsule) 50 mg PO Q4H PRN PRN PRN Reason: mild anxiety Ibuprofen (Ibuprofen 400 Mg Tablet) 400 mg PO Q8H PRN PRN PRN Reason: Pain Score 1-10/10/T>100.4F Last Admin: 06/01/20 19:44 Dose: 400 mg Documented by: Loperamide HCl (Loperamide 2 Mg Capsule) 2 mg PO Q4H PRN PRN PRN Reason: LOOSE STOOLS Last Admin: 06/01/20 19:44 Dose: 2 mg Documented by: Nicotine (Nicotine 21 Mg Patch) 21 mg TRANSDERM. DAILY [facility] Last Admin: 06/02/20 10:49 Dose: 21 mg Documented by: Ondansetron HCl (Ondansetron 8 Mg Tablet) 8 mg PO Q8H PRN PRN PRN Reason: NAUSEA Last Admin: 06/01/20 19:44 Dose: 8 mg Documented by: Phenobarbital (Phenobarbital 32.4 Mg Tablet) 97.2 mg PO Q4H CHE; Taper Stop: 06/06/20 01:59 Last Admin: 06/02/20 10:52 Dose: 97.2 mg Documented by: Potassium Chloride (Potassium Chloride 20 Meq Tablet) 40 meq PO DAILYCM CHE Stop: 06/05/20 08:01 Senna (Senna Tablet) 2 tablet PO QHS PRN PRN Reason: Constipation Sodium Chloride (0.9% Saline Lock 10 Ml Syringe) 10 - 40 ml IV UD PRN PRN Reason: SALINE FLUSH Last Admin: 06/01/20 20:10 Dose: 10 ml Documented by: Thiamine HCl (Thiamine Hydrochloride 100 Mg Tablet) 100 mg PO DAILYCM CHE Last Admin: 06/02/20 10:50 Dose: 100 mg Documented by: Trazodone HCl (Trazodone 100 Mg Tablet) 100 mg PO QHS PRN PRN Reason: INSOMNIA Last Admin: 06/01/20 22:20 Dose: 100 mg Documented by: STROKE Vital Signs/Narrative: Vital Signs Pulse 06/02/20 08:36 60 Medical Necessity - Tobacco Use Smoking Status: Current every day smoker Tobacco Use: Cigarettes Assessment/Plan All Active Problems Alcohol abuse (Acute) Alcohol withdrawal (Acute) This 35-year-old female is being admitted with acute alcohol withdrawal syndrome. 1. Acute alcohol withdrawal syndrome: Patient is being admitted to [facility] floor on telemetry. Started on phenobarbital based other supportive medications to control withdrawal symptoms. manager administrative consult. Consult 180. 06/02: K3.5, magnesium 1.8. ALT and AST trending down. Albumin 2.4. Phosphorus 3.1. 2. Uncontrolled hypertension, hypertensive urgency secondary to acute alcohol withdrawal syndrome: Clonidine 0.2 mg p.o. twice daily with holding parameters ordered. Patient is also dehydrated therefore 2 liter Ringer lactate ordered. 3. Hypokalemia: Potassium is getting replaced. Serum magnesium and phosphorus level normal. 4. Anxiety and depression: On gabapentin and duloxetine. 5. History of chronic opioid use and polysubstance use: Patient claimed that she is clean since previous admission in October 2018 for the same. VTE prophylaxis, low risk. Early ambulation encouraged. Laboratory Results 06/01/20 11:05: Sodium 138, Potassium 3.3 L, Chloride 103, Carbon Dioxide 28.0, Anion Gap 7, BUN 8, Creatinine 0.73, Estim Creat Clear Calc 96.79, Est GFR (MDRD) Af Amer 116, Est GFR (MDRD) Non-Af 96, BUN/Creatinine Ratio 10.9, Glucose 106, Calcium 8.3 L, Magnesium 1.6, Total Bilirubin 0.90, AST 281 H, ALT 181 H, Alkaline Phosphatase 153 H, Total Protein 7.8, Albumin 3.0 L, Globulin 4.8 H, Albumin/Globulin Ratio 0.6 L, Lipase 234 06/01/20 11:05: Ethyl Alcohol < 3.0 06/01/20 11:05: Serum , Qual NEGATIVE 06/01/20 11:05: Phosphorus 3.1 06/02/20 06:30: Sodium 136, Potassium 3.5, Chloride 105, Carbon Dioxide 26.0, Anion Gap 5, BUN 10, Creatinine 0.69, Estim Creat Clear Calc 98.27, Est GFR (MDR D) Af Amer 125, Est GFR (MDRD) Non-Af 104, BUN/Creatinine Ratio 14.6, Glucose 106, Calcium 7.8 L, Magnesium 1.8 06/02/20 06:30: Total Bilirubin 1.20 H, Direct Bilirubin 0.40 H, AST 137 H, ALT 119 H, Alkaline Phosphatase 116, Total Protein 6.3 L, Albumin 2.4 L, Globulin 3.9 Inpatient E&M: [id number] Subs Hosp L2
[2020-06-02] MEDS: Gabapentin 300 MG Capsule PO (18:32)
[2020-06-02] MEDS: hydrOXYzine PAM 25 MG Capsule 50 MG PO (18:37)
[2020-06-02] MEDS: cloNIDine HCl 0.2 MG Tablet 0.1 MG PO (18:38)
[2020-06-02] MEDS: Albuterol 2.5 MG/3 ML VIAL.NEB. INHALATION (21:01)
[2020-06-02] MEDS: Ibuprofen 400 MG Tablet PO (21:05)
[2020-06-02] MEDS: traZODone 100 MG Tablet PO (22:19)
[2020-06-03] VITALS (7 sets, daily range): BP systolic 115–171; BP diastolic 62–91; PULSE 55–108; RESP 16–18; TEMP 36.4–37.1; O2SAT 97–99
[2020-06-03] MEDS: Phenobarbital 32.4 MG Tablet 64.8 MG PO ×6 (02:25→21:32)
[2020-06-03 07:30] LABS: Anion Gap 5 (5-15); BUN 9 mg/dL (7-18); BUN/Creat Ratio 12.8 RATIO (10-20); Calcium,Total 8.1 mg/dL (8.5-10.1); Chloride 108 mmol/L (98-107); EST Glomerular Filtration Rate 100 mL/min (>60); Est Glom Filt Rate - Afr Amer 121 mL/min (>60); Estimated Creatinine Clearance 96.86 ml/min; Glucose 93 mg/dL (74-106); Magnesium 1.7 mg/dL (1.6-2.6); Potassium 4.2 mmol/L (3.5-5.1); Sodium Level 138 mmol/L (136-145)
--- NOTE | 2020-06-03 08:36 | ADDICTION ---
This poem writer attempted to meet with patient. Patient asked to meet tomorrow due to not feeling well. This poem writer asked about her d/c plan- patient stated that she has completed an assessment with [facility] and wants residential treatment. This poem writer will attempt to follow up with patient tomorrow 06/04/2020.
[2020-06-03] MEDS: Folic Acid 1 MG Tablet PO (09:10)
[2020-06-03] MEDS: DULoxetine Hcl 60 MG Capsule PO (09:11)
[2020-06-03] MEDS: Thiamine Hydrochloride 100 MG Tablet PO (09:11)
[2020-06-03] MEDS: Gabapentin 800 MG Tablet PO ×3 (09:18→17:34)
--- NOTE | 2020-06-03 10:04 | PN_ITS ---
Patient Problems: Active and Suspected Problems Alcohol abuse (Acute) Alcohol withdrawal (Acute) Reason for Visit: Follow-up for alcohol withdrawal Objective: Patient complains of vaginal itching and whitish mucoid type discharge. Never been evaluated by SPRINKLER INSPECTOR. Patient has restlessness and anxiety but tremors are controlled. Patient turned down to see 180 today. Physical exam General: Alert, Oriented x3, Cooperative HEENT: Atraumatic, PERRLA, EOMI, Normocephalic Oral: No Gingival or Mucosal Lesions/ Ulcerations Neck: Supple, No JVD, Negative Carotid Bruits Lungs: Air entry equal in bilateral lung bases. No crepitation/rhonchi Cardiovascular: Regular rate, Regular Rhythm, Normal S1, Normal S2, No murmurs Abdomen: Bowel Sounds Present, Soft, Non Tender, Non-Distended : No renal angle tenderness. No suprapubic tenderness. Extremities: No edema, Capillary Refill Less than 3 Seconds Skin: No rashes, No breakdown Musculoskeletal: No Tenderness to Palpation of Joints or Extremities Neurological: Cranial nerves II-XII grossly intact, Deep Tendon Reflexes 2+/4 and Symmetrical, Neuro grossly intact Psych/Mental Status: Normal Affect, Appropriate. Vitals/I&O's: Vital Signs Temp Pulse Resp BP Pulse Ox 98.7 F 78 18 130/62 H 99 06/03/20 09:47 06/03/20 09:47 06/03/20 09:47 06/03/20 09:47 06/03/20 09:47 Oxygen Delivery Method Room Air Weight: 183 lb 13.848 oz Body Mass Index (BMI) 30.6 Intake and Output for Last 24 Hours 06/01/20 06/02/20 06/03/20 23:59 23:59 23:59 Intake Total 297.75 / 297.75 2156.25 / 2156.25 550 / 550 Balance 297.75 / 297.75 2156.25 / 2156.25 550 / 550 Laboratory Results 06/03/20 06:20: Sodium 138, Potassium 4.2, Chloride 108 H, Carbon Dioxide 25.0, Anion Gap 5, BUN 9, Creatinine 0.70, Estim Creat Clear Calc 96.86, Est GFR (MDRD) Af Amer 121, Est GFR (MDRD) Non-Af 100, BUN/Creatinine Ratio 12.8, Glucose 93, Calcium 8.1 L, Magnesium 1.7 Current Medications Al Hydroxide/Mg Hydroxide (Mag Hydrox/Al Hydrox/Simeth 30 Ml Udc) 30 ml PO Q6H PRN PRN PRN Reason: dyspesia Albuterol Sulfate (Albuterol 2.5 Mg/3 Ml Vial.Neb.) 2.5 mg INHALATION Q4H PRN PRN PRN Reason: wheezing/SOB Last Admin: 06/02/20 21:01 Dose: 2.5 mg Documented by: Bisacodyl (Bisacodyl 10 Mg Suppository) 10 mg RECTAL DAILY PRN PRN Reason: Constipation Clonidine (Clonidine Hcl 0.2 Mg Tablet) 0.1 mg PO BID PRN PRN Reason: SBP>150 mmhg Last Admin: 06/02/20 18:38 Dose: 0.1 mg Documented by: Dicyclomine HCl (Dicyclomine 10 Mg Capsule) 20 mg PO Q6H PRN PRN PRN Reason: abdominal discomfort Duloxetine HCl (Duloxetine Hcl 60 Mg Capsule) 60 mg PO DAILY COUNTS INCLUDE 234 BEDS AT THE [facility] Last Admin: 06/03/20 09:11 Dose: 60 mg Documented by: Fluconazole (Fluconazole 100 Mg Tablet) 200 mg PO DAILY COUNTS INCLUDE 234 BEDS AT THE [facility] Folic Acid (Folic Acid 1 Mg Tablet) 1 mg PO DAILY@0800 COUNTS INCLUDE 234 BEDS AT THE [facility] Last Admin: 06/03/20 09:10 Dose: 1 mg Documented by: Gabapentin (Gabapentin 800 Mg Tablet) 800 mg PO TIDCM COUNTS INCLUDE 234 BEDS AT THE [facility] Last Admin: 06/03/20 09:18 Dose: 800 mg Documented by: Ibuprofen (Ibuprofen 400 Mg Tablet) 400 mg PO Q8H PRN PRN PRN Reason: Pain Score 1-10/10/T>100.4F Last Admin: 06/02/20 21:05 Dose: 400 mg Documented by: Loperamide HCl (Loperamide 2 Mg Capsule) 2 mg PO Q4H PRN PRN PRN Reason: LOOSE STOOLS Last Admin: 06/01/20 19:44 Dose: 2 mg Documented by: Magnesium Chloride (Magnesium Chloride 64 Mg Delay Rel.Tablet) 128 mg PO BID COUNTS INCLUDE 234 BEDS AT THE [facility] Stop: 06/05/20 10:01 Metoclopramide HCl (Metoclopramide 5 Mg Tablet) 5 mg PO Q6H PRN PRN Reason: nausea/vomiting Nicotine (Nicotine 21 Mg Patch) 21 mg TRANSDERM. DAILY COUNTS INCLUDE 234 BEDS AT THE [facility] Last Admin: 06/03/20 09:11 Dose: 21 mg Documented by: Phenobarbital (Phenobarbital 32.4 Mg Tablet) 64.8 mg PO Q4H COUNTS INCLUDE 234 BEDS AT THE [facility]; Taper Stop: 06/06/20 01:59 Last Admin: 06/03/20 05:46 Dose: 64.8 mg Documented by: Potassium Chloride (Potassium Chloride 20 Meq Tablet) 40 meq PO BIDCM COUNTS INCLUDE 234 BEDS AT THE [facility] Stop: 06/04/20 17:01 Last Admin: 06/03/20 09:10 Dose: 40 meq Documented by: Senna (Senna Tablet) 2 tablet PO QHS PRN PRN Reason: Constipation Sodium Chloride (0.9% Saline Lock 10 Ml Syringe) 10 - 40 ml IV UD PRN PRN Reason: SALINE FLUSH Last Admin: 06/01/20 20:10 Dose: 10 ml Documented by: Thiamine HCl ([facility] Hydrochloride 100 Mg Tablet) [facility] Last Admin: 06/03/20 09:11 Dose: 100 mg Documented by: Trazodone HCl (Trazodone 100 Mg Tablet) 50 mg PO QHS PRN PRN Reason: INSOMNIA STROKE Vital Signs/Narrative: Vital Signs Temp Pulse Resp BP Pulse Ox 06/03/20 09:47 98.7 F 78 18 130/62 H 99 Medical Necessity - Tobacco Use Smoking Status: Current every day smoker Tobacco Use: Cigarettes Assessment/Plan All Active Problems Alcohol abuse (Acute) Alcohol withdrawal (Acute) This 35-year-old female is being admitted with acute alcohol withdrawal syndrome. 1. Acute alcohol withdrawal syndrome: Patient is being admitted to [facility] on telemetry. Started on phenobarbital based other supportive medications to control withdrawal symptoms. manager floor consult. Consult 180. 06/03 symptoms are controlled. 180 will follow up tomorrow. 2. Uncontrolled hypertension, hypertensive urgency secondary to acute alcohol withdrawal syndrome: Clonidine 0.2 mg p.o. twice daily with holding parameters ordered. Patient blood pressure is normal. Clonidine dose decreased to 0.1 mg p.o. twice daily as needed for tachycardia and hypertension. 3. Hypokalemia and hypomagnesemia: Electrolytes are getting replaced 4. Anxiety and depression: On gabapentin and duloxetine. 5. History of chronic opioid use and polysubstance use: Patient claimed that she is clean since previous admission in October 2018 for the same. VTE prophylaxis, low risk. Early ambulation encouraged. Laboratory Results 06/01/20 11:05: Sodium 138, Potassium 3.3 L, Chloride 103, Carbon Dioxide 28.0, Anion Gap 7, BUN 8, Creatinine 0.73, Estim Creat Clear Calc 96.79, Est GFR (MDRD) Af Amer 116, Est GFR (MDRD) Non-Af 96, BUN/Creatinine Ratio 10.9, Glucose 106, Calcium 8.3 L, Magnesium 1.6, Total Bilirubin 0.90, AST 281 H, ALT 181 H, Alkaline Phosphatase 153 H, Total Protein 7.8, Albumin 3.0 L, Globulin 4.8 H, Albumin/Globulin Ratio 0.6 L, Lipase 234 06/01/20 11:05: Ethyl Alcohol < 3.0 06/01/20 11:05: Serum , Qual NEGATIVE 06/01/20 11:05: Phosphorus 3.1 06/02/20 06:30: Sodium 136, Potassium 3.5, Chloride 105, Carbon Dioxide 26.0, Anion Gap 5, BUN 10, Creatinine 0.69, Estim Creat Clear Calc 98.27, Est GFR (MDRD) Af Amer 125, Est GFR (MDRD) Non-Af 104, BUN/Creatinine Ratio 14.6, Glucose 106, Calcium 7.8 L, Magnesium 1.8 06/02/20 06:30: Total Bilirubin 1.20 H, Direct Bilirubin 0.40 H, AST 137 H, ALT 119 H, Alkaline Phosphatase 116, Total Protein 6.3 L, Albumin 2.4 L, Globulin 3.9 Inpatient E&M: 12645 Subs Hosp L2
[2020-06-03] MEDS: Magnesium Chloride 64 MG Delay Rel.Tablet 128 MG PO ×2 (10:09→21:32)
[2020-06-03] MEDS: Fluconazole 100 MG Tablet 200 MG PO (10:15)
[2020-06-03] MEDS: cloNIDine HCl 0.1 MG Tablet PO (17:53)
[2020-06-03] MEDS: traZODone 100 MG Tablet 50 MG PO (21:28)
[2020-06-03] MEDS: Ibuprofen 400 MG Tablet PO (21:32)
[2020-06-04 02:28] VITALS: BP 140/88; PULSE 78; RESP 18; TEMP 36.6; O2SAT 98
[2020-06-04] MEDS: Phenobarbital 32.4 MG Tablet 64.8 MG PO ×2 (02:32→07:58)
--- NOTE | 2020-06-04 07:42 | DS.PCM_ITS ---
Discharge Date and Diagnosis - Problem List Patient Problems: Active and Suspected Problems Alcohol abuse (Acute) Alcohol withdrawal (Acute) Date of Admission: 06/01/20 Date of Discharge: 06/04/20 - Primary Discharge Diagnosis Acute Problems: Active Problems Alcohol abuse (Acute) Alcohol withdrawal (Acute) - Secondary Discharge Diagnosis Chronic Problems: Chronic Problems IV drug user (Chronic) Hepatitis C (Chronic) Anxiety and depression (Chronic) Tobacco use (Chronic) Hospital Course and Treatment Operations: None Summary of Care Provided: [] This 35-year-old female is being admitted with acute alcohol withdrawal syndrome. 1. Acute alcohol withdrawal syndrome: Patient is being admitted to [facility] floor on telemetry. Started on phenobarbital based other supportive medications to control withdrawal symptoms. analytics senior manager consult. Consult 180. Symptoms are well controlled. Patient was seen by 180. Advised to follow-up for the weekend for inpatient alcohol rehab. Vaginal candidiasis: Treated with Diflucan 200 mg x 2 days. Advised to follow- up IN SERVICE EDUCATION TEACHER as an outpatient. 2. Uncontrolled hypertension, hypertensive urgency secondary to acute alcohol withdrawal syndrome: Blood pressure and heart rate was controlled with clonidine 3. Hypokalemia and hypomagnesemia: Electrolytes are getting replaced. Repeat labs shows normal electrolytes 4. Anxiety and depression: On gabapentin and duloxetine. 5. History of chronic opioid use and polysubstance use: Patient claimed that she is clean since previous admission in October 2018 for the same. VTE prophylaxis, low risk. Early ambulation encouraged. Discharge medication reconciliation done. Discharge follow-up instructions completed. Discharge process discussed with the patient and all questions were answered to patient's satisfaction. Total time spent, exact 35 minutes on discharge meds reconciliation, examination, coordination of care with nurses and ancillary staff, review of imaging and blood test and discussion with the patient on follow-up instructions Patient Problems: Active and Suspected Problems Alcohol abuse (Acute) Alcohol withdrawal (Acute) Objective: Seen and examined. Patient is awake alert oriented x3. Fully conversational. Physical exam General: Alert, Oriented x3, Cooperative HEENT: Atraumatic, PERRLA, EOMI, Normocephalic Oral: No Gingival or Mucosal Lesions/ Ulcerations Neck: Supple, No JVD, Negative Carotid Bruits Lungs: Air entry diminished in bilateral lung bases. No crepitation/rhonchi Cardiovascular: Regular rate, Regular Rhythm, Normal S1, Normal S2, No murmurs Abdomen: Bowel Sounds Present, Soft, Non Tender, Non-Distended : No renal angle tenderness. No suprapubic tenderness. Extremities: No edema, Capillary Refill Less than 3 Seconds Skin: No rashes, No breakdown Musculoskeletal: No Tenderness to Palpation of Joints or Extremities Neurological: Cranial nerves II-XII grossly intact, Deep Tendon Reflexes 2+/4 and Symmetrical, Neuro grossly intact Psych/Mental Status: Normal Affect, Appropriate. - Physical Exam Vitals/I&O's: Vital Signs Temp Pulse Resp BP Pulse Ox 97.9 F 78 18 140/88 H 98 06/04/20 02:28 06/04/20 02:28 06/04/20 02:28 06/04/20 02:28 06/04/20 02:28 Oxygen Delivery Method Room Air Weight: 183 lb 13.848 oz Body Mass Index (BMI) 30.6 Intake and Output for Last 24 Hours 06/02/20 06/03/20 06/04/20 23:59 23:59 23:59 Intake Total 2156.25 / 2156.25 2550 / 2550 800 / 800 Balance 2156.25 / 2156.25 2550 / 2550 800 / 800 Laboratory Results 06/04/20 06:40: Sodium Pending, Potassium Pending, Chloride Pending, Carbon Dioxide Pending, Anion Gap Pending, BUN Pending, Creatinine Pending, Est GFR (MDRD) Af Amer Pending, Est GFR (MDRD) Non-Af Pending, BUN/Creatinine Ratio Pending, Glucose Pending, Calcium Pending Current Medications Al Hydroxide/Mg Hydroxide (Mag Hydrox/Al Hydrox/Simeth 30 Ml Udc) 30 ml PO Q6H PRN PRN PRN Reason: dyspesia Albuterol Sulfate (Albuterol 2.5 Mg/3 Ml Vial.Neb.) 2.5 mg INHALATION Q4H PRN PRN PRN Reason: wheezing/SOB Last Admin: 06/02/20 21:01 Dose: 2.5 mg Documented by: Bisacodyl (Bisacodyl 10 Mg Suppository) 10 mg RECTAL DAILY PRN PRN Reason: Constipation Clonidine (Clonidine Hcl 0.1 Mg Tablet) 0.1 mg PO BID PRN PRN Reason: SBP>150 mmhg Last Admin: 06/03/20 17:53 Dose: 0.1 mg Documented by: Dicyclomine HCl (Dicyclomine 10 Mg Capsule) 20 mg PO Q6H PRN PRN PRN Reason: abdominal discomfort Duloxetine HCl (Duloxetine Hcl 60 Mg Capsule) 60 mg PO DAILY [facility] Last Admin: 06/03/20 09:11 Dose: 60 mg Documented by: Fluconazole (Fluconazole 100 Mg Tablet) 200 mg PO DAILY [facility] Last Admin: 06/03/20 10:15 Dose: 200 mg Documented by: Folic Acid (Folic Acid 1 Mg Tablet) 1 mg PO DAILY@0800 [facility] Last Admin: 06/03/20 09:10 Dose: 1 mg Documented by: Gabapentin (Gabapentin 800 Mg Tablet) 800 mg PO TIDCM [facility] Last Admin: 06/03/20 17:34 Dose: 800 mg Documented by: Ibuprofen (Ibuprofen 400 Mg Tablet) 400 mg PO Q8H PRN PRN PRN Reason: Pain Score 1-10/10/T>100.4F Last Admin: 06/03/20 21:32 Dose: 400 mg Documented by: Loperamide HCl (Loperamide 2 Mg Capsule) 2 mg PO Q4H PRN PRN PRN Reason: LOOSE STOOLS Last Admin: 06/01/20 19:44 Dose: 2 mg Documented by: Magnesium Chloride (Magnesium Chloride 64 Mg Delay Rel.Tablet) 128 mg PO BID [facility] Stop: 06/05/20 10:01 Last Admin: 06/03/20 21:32 Dose: 128 mg Documented by: Metoclopramide HCl (Metoclopramide 5 Mg Tablet) 5 mg PO Q6H PRN PRN Reason: nausea/vomiting Nicotine (Nicotine 21 Mg Patch) 21 mg TRANSDERM. DAILY [facility] Last Admin: 06/04/20 02:33 Dose: 21 mg Documented by: Phenobarbital (Phenobarbital 32.4 Mg Tablet) 64.8 mg PO Q6H [facility]; Taper Stop: 06/06/20 01:59 Last Admin: 06/04/20 02:32 Dose: 64.8 mg Documented by: Potassium Chloride (Potassium Chloride 20 Meq Tablet) 40 meq PO BIDCM [facility] Stop: 06/04/20 17:01 Last Admin: 06/03/20 17:34 Dose: 40 meq Documented by: Senna (Senna Tablet) 2 tablet PO QHS PRN PRN Reason: Constipation Sodium Chloride (0.9% Saline Lock 10 Ml Syringe) 10 - 40 ml IV UD PRN PRN Reason: SALINE FLUSH Last Admin: 06/01/20 20:10 Dose: 10 ml Documented by: Thiamine HCl (Thiamine Hydrochloride 100 Mg Tablet) 100 mg PO DAILYCM [facility] Last Admin: 06/03/20 09:11 Dose: 100 mg Documented by: Trazodone HCl (Trazodone 100 Mg Tablet) 50 mg PO QHS PRN PRN Reason: INSOMNIA Last Admin: 06/03/20 21:28 Dose: 50 mg Documented by: Home Medications: Medications to take at Discharge Duloxetine Hcl [Cymbalta] 60 mg PO DAILY 06/01/20 Gabapentin [Neurontin] 800 mg PO TIDCM 06/01/20 Albuterol IH (ProAir) [Proair Hfa (SP)Vent Pts] 1 - 2 puff INHALATION Q4H PRN PRN 06/02/20 Folic Acid 1 mg PO DAILY #30 tab 06/04/20 Nicotine [Nicoderm Cq] 21 mg TRANSDERM. DAILY #30 patch 06/04/20 Thiamine Hydrochloride [Vitamin B1] 100 mg PO DAILYCM #30 tab 06/04/20 Following Prescriptions Were Given to Patient: Folic Acid 1 mg PO DAILY #30 tab Transmission Status: Received by [facility] Nicotine [Nicoderm Cq] 21 mg TRANSDERM. DAILY #30 patch Transmission Status: Received by [facility] Thiamine Hydrochloride [Vitamin B1] 100 mg PO DAILYCM #30 tab Transmission Status: Received by [facility] Primary Care Physician: Yesenia Doctor,Out of [NON-STAFF] - Medical Necessity - Tobacco Use Smoking Status: Current every day smoker Tobacco Use: Cigarettes Meaningful Use Info Meaningful Use Diagnoses (Choose all that apply): None applicable Inpatient E&M: 28618 Disch Hosp
--- NOTE | 2020-06-04 07:42 | DCINST_ITS ---
- Discharge Diagnoses Current Active Problems: Current Active and Chronic Problems Alcohol abuse (Acute) Alcohol withdrawal (Acute) IV drug user (Chronic) Hepatitis C (Chronic) Anxiety and depression (Chronic) Tobacco use (Chronic) You will use the following diet at home:: Regular Your food should be the consistency of: Regular Discharge Activity: May Not Drive Weight Bearing Status: Weight bearing as tolerated Call your doctor if you observe: Fever of 101 or Higher, Numbness or Tingling, Change in Color, Inability to urinate, Inability to have a bowel movement, Shortness of breath, Dizziness, Fainting spells, Swelling in the ankles, Chest pain, Prolonged hiccoughing, Increased palpitations (irregular heartbeat), Calf discomfort, Uncontrolled pain Additional Instructions: F/U 180 on weekend tomorrow for inpatient drug rehab Allergies/Adverse Reactions: Allergies No Known Allergies Allergy (Verified 06/01/20 09:32) Medications to take at Discharge Duloxetine Hcl [Cymbalta] 60 mg PO DAILY 06/01/20 Gabapentin [Neurontin] 800 mg PO TIDCM 06/01/20 Albuterol IH (ProAir) [Proair Hfa (SP)Vent Pts] 1 - 2 puff INHALATION Q4H PRN PRN 06/02/20 Folic Acid 1 mg PO DAILY #30 tab 06/04/20 Nicotine [Nicoderm Cq] 21 mg TRANSDERM. DAILY #30 patch 06/04/20 Thiamine Hydrochloride [Vitamin B1] 100 mg PO DAILYCM #30 tab 06/04/20 The following prescriptions were given: Folic Acid 1 mg PO DAILY #30 tab Transmission Status: Pending to [facility] Nicotine [Nicoderm Cq] 21 mg TRANSDERM. DAILY #30 patch Transmission Status: Pending to [facility] Thiamine Hydrochloride [Vitamin B1] 100 mg PO DAILYCM #30 tab Transmission Status: Pending to [facility] Primary Care Physician: Yesenia Doctor,Out of [NON-STAFF] - Please follow up with your Primary Care Physician in: in 2 weeks Test Results: Test results from this visit will be discussed in further detail at your follow- up appointment, if applicable.
[2020-06-04] MEDS: Ibuprofen 400 MG Tablet PO (07:50)
[2020-06-04] MEDS: Gabapentin 800 MG Tablet PO (07:51)
[2020-06-04] MEDS: Thiamine Hydrochloride 100 MG Tablet PO (07:52)
[2020-06-04] MEDS: Folic Acid 1 MG Tablet PO (07:52)
[2020-06-04 07:56] LABS: Anion Gap 4 (5-15); BUN 4 mg/dL (7-18); BUN/Creat Ratio 6.3 RATIO (10-20); Calcium,Total 8.3 mg/dL (8.5-10.1); Chloride 105 mmol/L (98-107); Creatinine, Serum 0.64 mg/dL (0.55-1.02); EST Glomerular Filtration Rate 113 mL/min (>60); Est Glom Filt Rate - Afr Amer 137 mL/min (>60); Estimated Creatinine Clearance 105.95 ml/min; Glucose 90 mg/dL (74-106); Potassium 4.3 mmol/L (3.5-5.1); Sodium Level 136 mmol/L (136-145)
[2020-06-04 08:02] VITALS: BP 137/86; PULSE 78; RESP 18; TEMP 37.2; O2SAT 99
--- NOTE | 2020-06-04 09:35 | ADDICTION ---
This commercial underwriter met with patient in her room to conduct ASAM, MSE and AUDIT assessments and to plan for her discharge planned for today. Client was willing to meet with this clinician today after declining d/c planning on 06/02/2020 and 06/03/2020. Patient plans to discharge to home, with her boyfriend, in [place], [place] and is scheduled to meet with this commercial underwriter at [facility] on 06/07/2020 to begin process to engage in Residential treatment. Client amiable to this plan. Client reported that she plans to be transported home by her significant other. All completed documentation is in client's file and will be faxed to [facility].
[2020-06-04] MEDS: Fluconazole 100 MG Tablet 200 MG PO (10:05)
[2020-06-04] MEDS: DULoxetine Hcl 60 MG Capsule PO (10:05)
[2020-06-04] MEDS: Magnesium Chloride 64 MG Delay Rel.Tablet 128 MG PO (10:05)
[2020-06-04 11:23] VITALS: BP 128/70; PULSE 79; RESP 18; TEMP 36.8; O2SAT 98
== END 2020-06-04 11:20 | disposition home or self-care (01) | DRG 773 ==
LOC: ED 12:55 → MS3 12:59
PROVIDERS: Admitting Provider Internal Medicine; Emergency Provider Student in an Organized Health Care Education/Training Program; Visit Provider Internal Medicine
DX: F10.239 Alcohol dependence with withdrawal, unspecified (principal); F11.23 Opioid dependence with withdrawal; I16.0 Hypertensive urgency; E87.6 Hypokalemia; E83.42 Hypomagnesemia; E86.0 Dehydration; B37.3 Candidiasis of vulva and vagina; F41.9 Anxiety disorder, unspecified; B18.2 Chronic viral hepatitis C; F32.9 Major depressive disorder, single episode, unspecified; F14.10 Cocaine abuse, uncomplicated; Z79.899 Other long term (current) drug therapy; F17.210 Nicotine dependence, cigarettes, uncomplicated
CPT/HCPCS: 36415; 76705; 80048; 80053; 80076; 80307; 80320; 83690; 83735; 84100; 84703; 85025; 85610; 93005; 94640; 99285; 99406; J7120; 90686; A4216; G0480